=== PATIENT | female | born 1940 | race Caucasian/White ===

== ENCOUNTER 2017-09-10 21:51 | Inpatient (IN) | payer MEDICARE, MEDICAID ==
[2017-09-10] MEDS ORDERED: Sodium Bicarbonate 8.4% 50mEq PFS IVP STA (22:18)
[2017-09-10] MEDS ORDERED: Sodium Bicarbonate 8.4% 50mEq PFS IVP ONE (22:22)
[2017-09-10 22:24] LABS: pH 7.28 (7.35-7.45)
[2017-09-10 22:25] LABS: ALLEN TEST Positive
[2017-09-10 22:27] LABS: % BASOPHILS 0.7 % (0.0-2.0); % EOSINOPHILS 1.7 % (0.0-5.0); % MONOCYTES 12.2 % (2.0-10.0); % NEUTROPHILS 66.4 % (40.0-80.0); BASOPHILE ABSOLUTE 0.1 Th/cumm (0-0.2); EOSINOPHILE ABSOLUTE 0.2 Th/cmm (0.1-0.4); HEMOGLOBIN 12.1 gm/dL (12-16); LYMPHOCYTE ABSOLUTE 2.7 Th/cmm (1.5-3.0); MEAN CELL VOLUME 88.4 fl (81-100); MEAN CORPUSCULAR HGB CONC 32.8 pg (28.0-36.0); MEAN PLATELET VOLUME 7.2 fl; MONOCYTE ABSOLUTE 1.8 Th/cmm (0.3-1.0); NEUTROPHILE ABSOLUTE 9.6 Th/cmm (1.8-8.0); PLATELET COUNT 372 Th/cmm (150-400); RED BLOOD COUNT 4.19 Mil/cmm (3.80-5.20); RED CELL DISTRIBUTION WIDTH 16.3 % (11.5-20.0); WHITE BLOOD COUNT 14.4 Th/cmm (4.8-10.8)
--- NOTE | 2017-09-10 22:39 | ED Physician Chart ---
ED Chief Complaint/HPI - Patient Information Date Seen:: 09/10/17 Time Seen:: 22:00 Chief Complaint:: aloc History of Present Illness:: this is a 77 yo female bib ems from a half-way after she was found sob, confused more than usual. she was in respiratory distress and lethargic. she has a history of uti, encephalopathy diabetes and hypertension. Allergies:: Allergies Allergy/AdvReac Type Severity Reaction Status Date / Time adhesive tape Allergy Verified 09/10/17 21:58 Vitals:: Vital Signs - 8 hr 09/10/17 09/10/17 21:51 22:03 Temp 99.2 F HR 104 RR 39 BP 102/55 119/73 O2 Sat % 100 Historian:: EMS, Medical Records Review:: Nurse's Note Reviewed, Old Chart Reviewed, EMS run form Reviewed, Transfer documents Reviewed ED Review of Systems - Review of Systems General/Constitutional: No fever, No chills, No weight loss, No weakness, No diaphoresis, No edema, No loss of appetite, Other (this patient is unable to give a review of systems) Skin: No skin lesions, No rash, No bruising Head: No headache, No light-headedness Eyes: No loss of vision, No pain, No diplopia ENT: No earache, No nasal drainage, No sore throat, No tinnitus Neck: No neck pain, No swelling, No thyromegaly, No stiffness, No mass noted Cardio Vascular: No chest pain, No palpitations, No PND, No orthopnea, No edema Pulmonary: No SOB, No cough, No sputum, No wheezing GI: No nausea, No vomiting, No diarrhea, No pain, No melena, No hematochezia, No constipation, No hematemesis G/U: No dysuria, No frequency, No hematuria Musculoskeletal: No bone or joint pain, No back pain, No muscle pain Endocrine: No polyuria, No polydipsia Psychiatric: No prior psych history, No depression, No anxiety, No suicidal ideation Hematopoietic: No bruising, No lymphadenopathy Allergic/Immuno: No urticaria, No angioedema Neurological: No syncope, No focal symptoms, No weakness, No paresthesia, No headache, No seizure, No dizziness, No confusion, No vertigo ED Past Medical History - Past Medical History Obtainable: Yes Past Medical History: HTN, DM, CAD, CHF, CVA/TIA, Dyslipidemia, Dementia Family History: None Social History: Non Smoker, No Alcohol, No Drug Use, Care Facility Surgical History: HIP, other (abdominal surgery and left breast surgery. left knee surgery, right hip surgery.) Psychiatricy History: Dementia Medication: Reviewed Family Medical History - Family Member Mother History Unknown: Yes ED Physical Exam - Physical Examination General/Constitutional: Awake, Well-developed, well-nourished, Alert, No distress, GCS 15, Non-toxic appearing, Ambulatory Other Gen/Cons comments:: lethargic with no verbal response Head: Atraumatic Eyes: Lids, conjuctiva normal, PERRL, EOMI Skin: Nl inspection, No rash, No skin lesions, No ecchymosis, Well hydrated, No lymphadenopathy ENMT: External ears, nose nl, Nasal exam nl, Lips, teeth, gums nl Neck: Nontender, Full ROM w/o pain, No JVD, No nuchal rigidity, No bruit, No mass, No stridor Respiratory: Nl effort/Exclusion (labora), Clear to Auscultation, No Wheeze/ Rhonchi/Rales (bilateral rales heard ) Cardio Vascular: RRR, No murmur, gallop, rubs, NL S1 S2 Other Cardio Vascular comments:: tachycardiac GI: No tenderness/rebounding/guarding (the abdomen is distended and tender), No organomegaly, No hernia, Normal BS's, Nondistended, No mass/bruits, No McBurney tenderness : No CVA tenderness Extremities: No tenderness or effusion, Full ROM, normal strength in all extremities, No edema (bilateral 2+ edema with induration noted.), Normal digits & nails Neuro/Psych: Alert/oriented, DTR's symmetric, Normal sensory exam, Normal motor strength, Judgement/insight normal, Mood normal, Normal gait, No focal deficits Misc: Normal back, No paraspinal tenderness ED Labs/Radiology/EKG Results - Lab Results Results: Laboratory Tests 09/10/17 21:52 Specimen Source Arterial Sample Site Right Radial pH 7.28 L pCO2 50.0 H pO2 415.0 H HCO3 22.2 Base Excess -3.6 L O2 Saturation 100.0 Cl Test Positive Vent Rate NA Inspired O2 100 Tidal Volume NA PEEP NA Pressure (ins/psv/peep) NA Critical Value SC - Radiology Results Results: chest s-ray = plumonary edema ct scan of the abdomen = bilateral rib fractures, degenerate lumbar spine. - EKG Interpretations EKG Time:: 22:15 Rate & Rhythm: 97, sinus [place]: left axis ED Assessment - Assessment General Assessment: plumonary edema urinary tract infectionn encephalopathy ED Septic Shock - . Is Septic Shock (SBP<90, OR Lactate>4 mmol\L) present?: No - <6hrs of presentation: Vital Signs: Vital Signs - 8 hr 09/10/17 09/10/17 21:51 22:03 Temp 99.2 F HR 104 RR 39 BP 102/55 119/73 O2 Sat % 100 ED Reassessment (Disposition) - Reassessment Reassessment Condition:: Improved - Diagnosis Diagnosis:: plumonary edema bilateral rib fractures urinary tract infection encephalopathy - Patient Disposition Admitted to:: Telemetry Admitting Medical Physician:: Pedro Quiroz Condition at Disposition:: Improved
[2017-09-10 22:43] LABS: INR 1.19 (0.5-1.4); PROTHROMBIN TIME (TEST) 12.3 SECONDS (9.5-11.5)
[2017-09-10 22:52] LABS: ALB/GLOB RATIO 0.7 (1.0-1.8); ALBUMIN 2.4 gm/dL (3.7-5.3); ALKALINE PHOSPHATASE 75 U/L (34-104); ANION GAP 10.2 (7.0-16.0); BILIRUBIN,TOTAL 0.4 mg/dL (0.3-1.0); BUN - UREA NITROGEN 33 mg/dL (7-25); CALCIUM SERUM 8.1 mg/dL (8.6-10.3); CARBON DIOXIDE 21.2 mEq/L (21.0-31.0); CHLORIDE 116 mEq/L (98-107); CREATININE - SERUM 2.2 mg/dL (0.6-1.2); GLUCOSE 171 mg/dL (70-105); POTASSIUM SERUM 4.4 mEq/L (3.5-5.1); SGOT 22 U/L (13-39); SGPT/ALT 10 U/L (7-52); SODIUM SERUM 143 mEq/L (136-145)
[2017-09-10] MEDS ORDERED: Albuterol/Ipratropium Neb 3 ML AERS HHN ONE ×2 (23:00→23:04)
[2017-09-10 23:22] LABS: URINE SOURCE FOLEY PORT
[2017-09-10 23:24] LABS: URINE BILIRUBIN SMALL (NEGATIVE); URINE BLOOD LARGE (NEGATIVE); URINE GLUCOSE (UA) NEGATIVE (NEGATIVE); URINE KETONE TRACE mg/dL (NEGATIVE); URINE LEUKOCYTE ESTERASE SMALL (NEGATIVE); URINE MICROSCOPIC INDICATED? YES; URINE NITRATE NEGATIVE (NEGATIVE); URINE PH 5.5 (4.6 - 8.0); URINE PROTEIN 100 mg/dL (NEGATIVE); URINE UROBILINOGEN 0.2 E.U./dL (0.2 - 1.0)
[2017-09-10 23:27] LABS: URINE COLOR ORANGE
[2017-09-10 23:29] LABS: URINE CLARITY CLOUDY (CLEAR)
[2017-09-10 23:33] LABS: URINE BACTERIA MODERATE /hpf (NONE SEEN); URINE EPITHELIAL CELLS MODERATE /lpf (FEW); URINE YEAST MODERATE /hpf (NONE SEEN)
[2017-09-10] MEDS ORDERED: Morphine Sulfate 2 mg/mL 1mL Syr IV STA (23:52)
[2017-09-10] MEDS ORDERED: Morphine Sulfate 2 mg/mL 1mL Syr ONE (23:54)
[2017-09-11] MEDS ORDERED: Sodium Chloride 0.9% 1,000 ML IV ONE
[2017-09-11] MEDS ORDERED: Piperacillin Sodium/Tazobact 2.25 gm Vial IV ONE (06:20)
[2017-09-11] MEDS ORDERED: methylPREDNISolone SS 40 mg Vial ONE (06:28)
[2017-09-11] MEDS: methylPREDNISolone SS 40 mg Vial IVP SCH ×4 (06:30→23:58)
[2017-09-11] MEDS: INSULIN ASPART SLIDING SCALE 100 UNITS/ML UNIT SUBQ SCH ×4 (06:38→21:01)
[2017-09-11] MEDS ORDERED: INSULIN HUMAN REGULAR 100 UNITS/ML UNIT ONE (06:38)
[2017-09-11 07:06] VITALS: BP 107/53
[2017-09-11] MEDS: Albuterol/Ipratropium Neb 3 ML AERS HHN SCH ×3 (07:36→19:04)
[2017-09-11] MEDS ORDERED: VTE Chemical Prophylaxis Screen/Admission MC PRN (07:45)
[2017-09-11 08:29] LABS: % BASOPHILS 0.7 % (0.0-2.0); % EOSINOPHILS 0.2 % (0.0-5.0); % LYMPHOCYTES 12.1 % (20.0-50.0); % MONOCYTES 2.1 % (2.0-10.0); % NEUTROPHILS 84.9 % (40.0-80.0); BASOPHILE ABSOLUTE 0.1 Th/cumm (0-0.2); HEMATOCRIT 35.9 % (41.0-60); HEMOGLOBIN 11.7 gm/dL (12-16); LYMPHOCYTE ABSOLUTE 1.2 Th/cmm (1.5-3.0); MEAN CELL VOLUME 88.2 fl (81-100); MEAN CORPUSCULAR HEMOGLOBIN 28.8 pg (27.0-31.0); MEAN CORPUSCULAR HGB CONC 32.6 pg (28.0-36.0); MEAN PLATELET VOLUME 7.1 fl; MONOCYTE ABSOLUTE 0.2 Th/cmm (0.3-1.0); NEUTROPHILE ABSOLUTE 8.8 Th/cmm (1.8-8.0); PLATELET COUNT 367 Th/cmm (150-400); RED BLOOD COUNT 4.07 Mil/cmm (3.80-5.20); RED CELL DISTRIBUTION WIDTH 15.9 % (11.5-20.0)
[2017-09-11 08:43] LABS: WHITE BLOOD COUNT 10.3 Th/cmm (4.8-10.8)
[2017-09-11 08:44] LABS: ALB/GLOB RATIO 0.7 (1.0-1.8); ALBUMIN 2.4 gm/dL (3.7-5.3); ALKALINE PHOSPHATASE 75 U/L (34-104); ANION GAP 13.3 (7.0-16.0); BILIRUBIN,TOTAL 0.4 mg/dL (0.3-1.0); BUN - UREA NITROGEN 36 mg/dL (7-25); CALCIUM SERUM 7.9 mg/dL (8.6-10.3); CARBON DIOXIDE 21.3 mEq/L (21.0-31.0); CHLORIDE 115 mEq/L (98-107); CREATININE - SERUM 2.2 mg/dL (0.6-1.2); GLUCOSE 230 mg/dL (70-105); POTASSIUM SERUM 4.6 mEq/L (3.5-5.1); SGOT 18 U/L (13-39); SGPT/ALT 10 U/L (7-52); SODIUM SERUM 145 mEq/L (136-145); TOTAL PROTEIN,SERUM 6.1 gm/dL (6.0-8.3)
[2017-09-11] MEDS: Potassium Chloride 20 mEq ER Tab PO SCH (09:04)
--- NOTE | 2017-09-11 09:07 | Diagnostic Imaging Report ---
CHEST X-RAY: AP view INDICATION: CHF COMPARISON: None FINDINGS: Increased interstitial lung markings are noted. Multiple old left rib fractures are noted. No focal consolidation or effusions. 8 mm calcific density seen projecting along the left lung base. Heart size at the upper limits of normal. Atherosclerosis is noted. Degenerative changes of the spine and shoulders are noted. IMPRESSION: Increased interstitial lung markings which may be chronic, however, a marginal of congestion cannot be completely excluded. Clinical correlation is recommended. 8 mm calcific density projecting along the left lower lung zone possibly a granuloma. PA and lateral views or CT would further clarify. Multiple old left rib fractures. No pneumothorax. Atherosclerotic vascular disease.
--- NOTE | 2017-09-11 09:14 | Diagnostic Imaging Report ---
Head CT without intravenous contrast Indication: Altered mental status Comparison: None Technique: Axial images were obtained from the vertex to the skull base without IV contrast. Coronal reconstructions were made. Total DLP: 599, CTDI32 FINDINGS: Images of the brain obtained without contrast demonstrate no evidence of an acute hemorrhage. Exam is limited due to technical factors. The ventricles and basal cisterns are patent. No mass effect or midline shift. Mild white matter disease is noted. Atherosclerosis is noted. No evidence of a skull fracture or focal soft tissue swelling. The visualized paranasal sinuses are clear. There appears to be dental hardware. IMPRESSION: No evidence of an acute intracranial hemorrhage. Mild supratentorial white matter disease which is nonspecific and may be due to chronic microvessel ischemia.
--- NOTE | 2017-09-11 09:42 | Diagnostic Imaging Report ---
CT abdomen and pelvis without intravenous contrast Indication: Abdominal pain Comparison: None, Technique: Axial images were obtained from the lung bases to the bilateral proximal femurs without IV contrast. Coronal reconstructions were made. total DLP: 860, CTDI18.5 FINDINGS: Hypoventilatory atelectatic changes of the lungs are seen. Exam is limited due to body habitus and motion. Assessment of solid organs is also limited due to lack of IV contrast. Fatty infiltration of the liver is noted with mildly prominent liver also noted.. No discrete focal lesions. No radiopaque gallstones. No focal splenic lesions. Limited assessment of pancreas since is no obvious focal lesions. No focal adrenal lesions. No evidence of hydronephrosis or focal renal lesions. Mild nonspecific bilateral perinephric inflammatory changes are noted. Small fat-containing umbilical hernia is noted. Calcifications of the uterus is noted. The urinary bladder collapsed containing a Wright catheter and small pocket of gas. Diverticulosis is noted without evidence of diverticulitis. Moderate stool is noted with gas-filled loops of bowel. The appendix is not visualized. Postsurgical changes of anterior abdominal wall are noted with evidence of previous anterior abdominal wall hernia repair. There is minimal presacral free fluid and questionable mild prominence of the rectal wall. Moderate atherosclerosis is noted. Changes of the spine are noted. Right hip arthroplasty is noted. Old bilateral rib fractures are noted. Small hiatal hernia is noted. IMPRESSION: Mild rectal wall prominent which may be due to inflammatory or less likely infiltrative process. Trace fluid along the presacral region and inflammatory changes are also noted. Diverticulosis without evidence of diverticulitis. Mild hepatomegaly with diffuse fatty infiltration. Uterine calcifications likely due to fibroid changes. Postsurgical changes of anterior abdominal wall. Small fat-containing umbilical hernia is noted. Wright catheter with small air pocket within the urinary bladder. Mild urinary bladder wall thickening cannot be excluded. Small hiatal hernia. Atherosclerotic vascular disease, right hip arthroplasty. Degenerative changes of the spine.
[2017-09-11] MEDS: D5-0.45NS 1,000 ML IV SCH (10:45)
[2017-09-11] MEDS ORDERED: Albumin 5% 12.5gm/250mL 12.5 GM/250 ML BTL IV ONE (12:03)
--- NOTE | 2017-09-11 13:54 | Consultation ---
Consult Note - Consult Note Service Date: 09/11/17 Referring Physician: Pedro Quiroz Consult Note: PHYSICIAN Consultation Note: Date of Admission: 09/11/17 Purpose of Consultation: Sepsis UTI Chief Complaint: Patient SYLVIE HU was admitted to location Intensive Care Unit with BILATERAL RIB FRACTURE,UTI,ENCEPHALOPATHY. History of Present Illness: 77-year-old female with the past medical history of hypertension, diabetes mellitus type 2, coronary artery disease, CHF, CVA, dyslipidemia, dementia brought from long-term for shortness of breath associated with associated increased confusion over the last 2 weeks. The patient was in no respiratory distress and became lethargic she was brought to the ER for further evaluation and management. On initial evaluation patient's temperature was 99.2F and WBC count was 14,400. Urinalysis showed pyuria, candiduria and bacteriuria. Patient was admitted to the ICU and the Zosyn was started. ID consult was called for further antibiotic management. Past Medical History: hypertension, diabetes mellitus type 2, coronary artery disease, CHF, CVA, dyslipidemia, dementia Allergies Allergy/AdvReac Type Severity Reaction Status Date / Time adhesive tape Allergy Verified 09/10/17 21:58 Vital Signs Temp 97.7 F 09/11/17 08:00 Pulse 87 09/11/17 13:02 Resp 20 09/11/17 13:02 BP 122/55 09/11/17 11:00 Pulse Ox 99 09/11/17 13:02 Intake & Output 09/10/17 09/11/17 09/11/17 18:59 06:59 18:59 Intake Total 50 Output Total 100 Balance -50 Weight (lbs) 90.718 kg 90.718 kg Intake: Intake, IV Amount 50 Piperacillin Sodium/ 50 Tazobact 2.25 gm In Sodium Chloride 0.9% 50 ml @ 100 mls/hr IV Q8HR [facility] Rx#:[id number] Oral 0 Output: Urine 100 Stool 0 Other: Weight Source Bedscale Laboratory Results - last 24 hr 09/10/17 09/10/17 09/10/17 21:52 22:13 22:13 WBC 14.4 H RBC 4.19 Hgb 12.1 Hct 37.0 L MCV 88.4 MCH 29.0 MCHC Differential 32.8 RDW 16.3 Plt Count 372 MPV 7.2 Neutrophils % 66.4 Lymphocytes % 19.0 L Monocytes % 12.2 H Eosinophils % 1.7 Basophils % 0.7 PT 12.3 H INR 1.19 PTT (Actin FS) 24.4 L Specimen Source Arterial Sample Site Right Radial pH 7.28 L pCO2 50.0 H pO2 415.0 H HCO3 22.2 Base Excess -3.6 L O2 Saturation 100.0 Cl Test Positive Vent Rate NA Inspired O2 100 Tidal Volume NA PEEP NA Pressure (ins/psv/peep) NA Critical Value SC Sodium Potassium Chloride Carbon Dioxide Anion Gap BUN Creatinine Est GFR ( Amer) Est GFR (Non-Af Amer) BUN/Creatinine Ratio Glucose POC Glucose Whole Bld Lactic Acid Calcium Total Bilirubin AST ALT Alkaline Phosphatase Creatine Kinase Troponin I B-Natriuretic Peptide Total Protein Albumin Globulin Albumin/Globulin Ratio Urine Source Urine Color Urine Clarity Urine pH Ur Specific [place] Urine Protein Urine Glucose (UA) Urine Ketones Urine Blood Urine Nitrate Urine Bilirubin Urine Urobilinogen Ur Leukocyte Esterase Urine RBC Urine WBC Ur Epithelial Cells Urine Bacteria Urine Yeast 09/10/17 09/10/17 09/10/17 22:13 22:13 22:13 WBC RBC Hgb Hct MCV MCH MCHC Differential RDW Plt Count MPV Neutrophils % Lymphocytes % Monocytes % Eosinophils % Basophils % PT INR PTT (Actin FS) Specimen Source Sample Site pH pCO2 pO2 HCO3 Base Excess O2 Saturation Cl Test Vent Rate Inspired O2 Tidal Volume PEEP Pressure (ins/psv/peep) Critical Value Sodium 143 Potassium 4.4 Chloride 116 H Carbon Dioxide 21.2 Anion Gap 10.2 BUN 33 H Creatinine 2.2 H Est GFR ( Amer) TNP Est GFR (Non-Af Amer) TNP BUN/Creatinine Ratio 15.0 Glucose 171 H POC Glucose Whole Bld Lactic Acid 1.08 Calcium 8.1 L Total Bilirubin 0.4 AST 22 ALT 10 Alkaline Phosphatase 75 Creatine Kinase Troponin I 0.02 B-Natriuretic Peptide Total Protein 6.0 Albumin 2.4 L Globulin 3.6 Albumin/Globulin Ratio 0.7 L Urine Source Urine Color Urine Clarity Urine pH Ur Specific [place] Urine Protein Urine Glucose (UA) Urine Ketones Urine Blood Urine Nitrate Urine Bilirubin Urine Urobilinogen Ur Leukocyte Esterase Urine RBC Urine WBC Ur Epithelial Cells Urine Bacteria Urine Yeast 09/10/17 09/11/17 09/11/17 23:15 00:00 03:45 WBC RBC Hgb Hct MCV MCH MCHC Differential RDW Plt Count MPV Neutrophils % Lymphocytes % Monocytes % Eosinophils % Basophils % PT INR PTT (Actin FS) Specimen Source Sample Site pH pCO2 pO2 HCO3 Base Excess O2 Saturation Cl Test Vent Rate Inspired O2 Tidal Volume PEEP Pressure (ins/psv/peep) Critical Value Sodium Potassium Chloride Carbon Dioxide Anion Gap BUN Creatinine Est GFR ( Amer) Est GFR (Non-Af Amer) BUN/Creatinine Ratio Glucose POC Glucose Whole Bld Lactic Acid Calcium Total Bilirubin AST ALT Alkaline Phosphatase Creatine Kinase 131 Troponin I B-Natriuretic Peptide 61.5 Total Protein Albumin Globulin Albumin/Globulin Ratio Urine Source [place] Urine Color ORANGE Urine Clarity CLOUDY H Urine pH 5.5 Ur Specific [place] >= 1.030 Urine Protein 100 H Urine Glucose (UA) NEGATIVE Urine Ketones TRACE Urine Blood LARGE H Urine Nitrate NEGATIVE Urine Bilirubin SMALL H Urine Urobilinogen 0.2 Ur Leukocyte Esterase SMALL H Urine RBC 5-10 H Urine WBC 10-25 H Ur Epithelial Cells MODERATE Urine Bacteria MODERATE H Urine Yeast MODERATE H 09/11/17 09/11/17 09/11/17 03:45 04:27 06:34 WBC RBC Hgb Hct MCV MCH MCHC Differential RDW Plt Count MPV Neutrophils % Lymphocytes % Monocytes % Eosinophils % Basophils % PT INR PTT (Actin FS) Specimen Source Sample Site pH pCO2 pO2 HCO3 Base Excess O2 Saturation Cl Test Vent Rate Inspired O2 Tidal Volume PEEP Pressure (ins/psv/peep) Critical Value Sodium Potassium Chloride Carbon Dioxide Anion Gap BUN Creatinine Est GFR ( Amer) Est GFR (Non-Af Amer) BUN/Creatinine Ratio Glucose POC Glucose 228 H 265 H Whole Bld Lactic Acid Calcium Total Bilirubin AST ALT Alkaline Phosphatase Creatine Kinase Troponin I 0.02 B-Natriuretic Peptide Total Protein Albumin Globulin Albumin/Globulin Ratio Urine Source Urine Color Urine Clarity Urine pH Ur Specific [place] Urine Protein Urine Glucose (UA) Urine Ketones Urine Blood Urine Nitrate Urine Bilirubin Urine Urobilinogen Ur Leukocyte Esterase Urine RBC Urine WBC Ur Epithelial Cells Urine Bacteria Urine Yeast 09/11/17 09/11/17 09/11/17 08:10 08:10 11:25 WBC 10.3 D RBC 4.07 Hgb 11.7 L Hct 35.9 L MCV 88.2 MCH 28.8 MCHC Differential 32.6 RDW 15.9 Plt Count 367 MPV 7.1 Neutrophils % 84.9 H Lymphocytes % 12.1 L Monocytes % 2.1 Eosinophils % 0.2 Basophils % 0.7 PT INR PTT (Actin FS) Specimen Source Sample Site pH pCO2 pO2 HCO3 Base Excess O2 Saturation Cl Test Vent Rate Inspired O2 Tidal Volume PEEP Pressure (ins/psv/peep) Critical Value Sodium 145 Potassium 4.6 Chloride 115 H Carbon Dioxide 21.3 Anion Gap 13.3 BUN 36 H Creatinine 2.2 H Est GFR ( Amer) TNP Est GFR (Non-Af Amer) TNP BUN/Creatinine Ratio 16.4 Glucose 230 H POC Glucose 169 H Whole Bld Lactic Acid Calcium 7.9 L Total Bilirubin 0.4 AST 18 ALT 10 Alkaline Phosphatase 75 Creatine Kinase Troponin I B-Natriuretic Peptide Total Protein 6.1 Albumin 2.4 L Globulin 3.7 Albumin/Globulin Ratio 0.7 L Urine Source Urine Color Urine Clarity Urine pH Ur Specific [place] Urine Protein Urine Glucose (UA) Urine Ketones Urine Blood Urine Nitrate Urine Bilirubin Urine Urobilinogen Ur Leukocyte Esterase Urine RBC Urine WBC Ur Epithelial Cells Urine Bacteria Urine Yeast 09/11/17 09/11/17 11:45 11:45 WBC RBC Hgb Hct MCV MCH MCHC Differential RDW Plt Count MPV Neutrophils % Lymphocytes % Monocytes % Eosinophils % Basophils % PT INR PTT (Actin FS) Specimen Source Sample Site pH pCO2 pO2 HCO3 Base Excess O2 Saturation Cl Test Vent Rate Inspired O2 Tidal Volume PEEP Pressure (ins/psv/peep) Critical Value Sodium Potassium Chloride Carbon Dioxide Anion Gap BUN Creatinine Est GFR ( Amer) Est GFR (Non-Af Amer) BUN/Creatinine Ratio Glucose POC Glucose Whole Bld Lactic Acid Calcium Total Bilirubin AST ALT Alkaline Phosphatase Creatine Kinase 131 Troponin I 0.03 B-Natriuretic Peptide Total Protein Albumin Globulin Albumin/Globulin Ratio Urine Source Urine Color Urine Clarity Urine pH Ur Specific [place] Urine Protein Urine Glucose (UA) Urine Ketones Urine Blood Urine Nitrate Urine Bilirubin Urine Urobilinogen Ur Leukocyte Esterase Urine RBC Urine WBC Ur Epithelial Cells Urine Bacteria Urine Yeast Home Medication Medication Instructions Recorded Type Aspirin [Aspirin Chewable] 81 mg PO DAILY 09/10/17 History Carvedilol 6.25 mg PO BID 09/10/17 History Diltiazem HCl [Diltiazem 24Hr ER] 240 mg PO DAILY 09/10/17 History Gabapentin 100 mg PO HS 09/10/17 History Heparin Sodium,Porcine [Heparin 5,000 unit SQ TID 09/10/17 History Sodium] Insulin Aspart Sliding Scale See Protocol SUBQ ACHS 09/10/17 History [NovoLOG INSULIN SLIDING SCALE] Ipratropium/Albuterol Sulfate 3 ml IH Q4H PRN 09/10/17 History [Iprat-Albut 0.5-3(2.5) mg/3 ml] Levothyroxine Sodium 75 mcg PO QDAC 09/10/17 History Metformin HCl 1,000 mg PO BID 09/10/17 History Pantoprazole Sodium 40 mg PO Q24H PRN 09/10/17 History Pravastatin Sodium [Pravastatin*] 40 mg PO HS 09/10/17 History Tramadol HCl [Ultram] 50 mg PO Q6H PRN 09/10/17 History Umeclidinium Brm/Vilanterol Tr 1 each IH DAILY 09/10/17 History [Anoro Ellipta 62.5-25 Mcg INH] Current Medications Generic Name Dose Route Start Last Admin Trade Name Freq PRN Reason Stop Dose Admin Acetaminophen 650 mg 09/11/17 12:01 09/11/17 13:21 Tylenol PO 11/10/17 12:00 650 mg Q4HR PRN Administration pain/fever Albuterol/Ipratropium 3 ml 09/11/17 07:00 09/11/17 13:01 Duoneb Neb HHN 11/10/17 06:59 3 ml Q6HRT ZAK Administration Furosemide 40 mg 09/11/17 09:00 09/11/17 08:52 Lasix IVP 11/10/17 08:59 40 mg DAILY ZAK Administration Heparin Sodium (Porcine) 5,000 units 09/11/17 09:00 09/11/17 09:03 Heparin SUBQ 11/10/17 08:59 5,000 units Q12HR ZAK Administration Piperacillin Sod/Tazobactam 50 mls @ 100 mls/hr 09/11/17 05:00 09/11/17 12:35 Sod 2.25 gm/ Sodium Chloride IV 11/10/17 04:59 100 mls/hr Q8HR ZAK Administration Dextrose/Sodium Chloride 1,000 mls @ 50 mls/hr 09/11/17 10:18 09/11/17 10:45 D5-0.45ns IV 11/10/17 10:17 50 mls/hr .Q20H ZAK Administration Albumin Human 12.5 gm in 250 mls @ 62.5 mls/hr 09/11/17 12:03 09/11/17 12:59 Albutein 5% IV 09/11/17 16:02 62.5 mls/hr X1 ONE Administration Insulin Aspart 0 units 09/11/17 07:30 09/11/17 11:37 Novolog Insulin Sliding Scale SUBQ 11/10/17 07:29 2 units ACHS ZAK Administration Protocol Insulin Aspart 0 units 09/11/17 16:30 Novolog Insulin Sliding Scale SUBQ 11/10/17 16:29 ACHS [facility] Protocol Levothyroxine Sodium 0.075 mg 09/12/17 07:30 Synthroid PO 11/11/17 07:29 QDAC ZAK Methylprednisolone Sodium Succinate 40 mg 09/11/17 06:00 09/11/17 12:35 Solu-Medrol IVP 11/10/17 05:59 40 mg Q6HR ZAK Administration Miscellaneous 1 ea 09/11/17 07:45 Vte Chemical Prophylaxis Screen/ Admission [facility] 11/10/17 07:44 PRN PRN PROTOCOL Miscellaneous 5,000 unit 09/11/17 14:00 Heparin Sodium,Porcine [Heparin Sodium] SQ 11/10/17 13:59 TID ZAK Potassium Chloride 40 meq 09/11/17 09:00 09/11/17 09:04 Klor-Con PO 11/10/17 08:59 40 meq DAILY ZAK Administration Review of Systems: A 12 point ROS was reviewed with the pertinent positive and negatives noted in the HPI. General/Constitutional: No fever, No chills, No weight loss, No weakness, No diaphoresis, No edema, No loss of appetite, Other (this patient is unable to give a review of systems) Skin: No skin lesions, No rash, No bruising Head: No headache, No light-headedness Eyes: No loss of vision, No pain, No diplopia ENT: No earache, No nasal drainage, No sore throat, No tinnitus Neck: No neck pain, No swelling, No thyromegaly, No stiffness, No mass noted Cardio Vascular: No chest pain, No palpitations, No PND, No orthopnea, No edema Pulmonary: No SOB, No cough, No sputum, No wheezing GI: No nausea, No vomiting, No diarrhea, No pain, No melena, No hematochezia, No constipation, No hematemesis G/U: No dysuria, No frequency, No hematuria Musculoskeletal: No bone or joint pain, No back pain, No muscle pain Endocrine: No polyuria, No polydipsia Psychiatric: No prior psych history, No depression, No anxiety, No suicidal ideation Hematopoietic: No bruising, No lymphadenopathy Allergic/Immuno: No urticaria, No angioedema Neurological: No syncope, No focal symptom s, No weakness, No paresthesia, No headache, No seizure, No dizziness, No confusion, No vertigo. Social History Lives at nursing facility. No active smoking at this time no alcohol or drug use. Family Medical History Family Medical History unknown. Physical Exam: General: Comfortable obese. HEENT: Head: Normocytic, atraumatic. Oral cavity: Moist, pink tongue eyes: Pallor is present icterus. Pupil PERRLA. EOMI. Neck: Supple, no JVD or bruit. Cardio: S1 and S2 within normal with regular rhythm Respiratory: Vesicular breath sound throughout, no crackles no wheezing. Abdominal: Abdomen soft within normal limits soft, nontender nondistended bowel sounds present Genital/Urinary: Deferred. Alert awake oriented 3. No focal neuro deficit. Extremities: Neurological: Arousable, awake. Speech is clear no cyanosis, no clubbing, no edema. Breast: There is an I and d wound under the left breast with intact wound secured by 8 adrian. no erythema or discharge. Assessment: 1. Leukocytosis, sepsis. 2. UTI and candiduria. Bacteriuria. 3. Hypertension. 4. Coronary artery Disease. 5. Diabetes mellitus type 2. 6. History of CVA. Plan: Continue Zosyn. Add Diflucan. Thank you Dr. godoy for involving taking care of this patient Signed, Wood Ibrahim M.D. [id number]
[2017-09-11] MEDS ORDERED: Non-Formulary Item 1 EA (Heparin Sodium,Porcine [Heparin Sodium] 5,000 UNIT) SQ SCH (14:00)
--- NOTE | 2017-09-11 14:35 | History & Physical ---
ADMIT DATE: 09/11/2017 REASON FOR ADMISSION: Shortness of breath, altered level of consciousness, urinary tract infection and is exogenous obesity patient with BMI of 34.3, diabetes mellitus, hypertension, hyperlipidemia. HISTORY OF PRESENT ILLNESS: This is a 77-year-old female resident of nursing home facility. Paramedics brought to the Emergency Room due to shortness of breath and altered level of consciousness. Since admission, the patient is able to say few words like want to go to the bathroom or answer yes or no, but then fall back to the sleep again. The patient's workup in the Emergency Room include CT of the head, which revealed no acute changes. The patient also had a CT of abdomen and pelvis and chest x-rays working diagnosis with congestive heart failure arrived though BNP was normal at 61. Lactic acid negative in venous ABG. WBC elevated at 14,000 with neutrophil of 66% normal. BUN 33, creatinine 2.2. Troponin negative. CPK negative. Urinalysis revealed trace of ketones, large blood, nitrite negative, wbc's 10-25 and bacteria and epithelial cells moderate, yeast moderate. All history required. REVIEW OF SYSTEMS: As the patient is unable to provide me any history. ALLERGIES: To ADHESIVE TAPE. MEDICATION: At the retirement is reviewed. REVIEW OF SYSTEMS: Unable to do as the patient is not able enough to give me the history from the poor participation. Review of chart from the [facility] done. PHYSICAL EXAMINATION: VITAL SIGNS: Height 1.63 meter, weight 90.7 kg, BMI 34.3, temperature maximum 97.7, pulse 80, respiratory rate 24, blood pressure 122/55, oxygen saturation 97% on 2 liter nasal cannula oxygen. HEENT: Significant for oral mucosa dry. NECK: Short and thick. No icterus or pallor. Oral candidiasis. LUNGS: Decreased air entry all over, but no rales, rhonchi. CARDIOVASCULAR: S1, S2 normal limit. ABDOMEN: Obese, otherwise benign. Wright catheter has very little yellow color urine, no blood noted in the Wright bag. EXTREMITIES: No leg edema noted, but very dry. SKIN: Dorsalis pedis poorly palpable. Chest x-ray is significant for atherosclerotic heart disease, multiple old left-sided rib fracture, no pneumothorax noted, and 8 mm granuloma noted, interstitial lung marking are elevated to appear chronic. CT abdomen and pelvis revealed hiatal hernia, hepatomegaly with fatty liver, diverticulosis without diverticulitis, and umbilical fatty hernia, Wright catheter in place, atherosclerotic vascular disease noted, degenerative disease noted in a supine and mild rectal wall prominence noted. Calcified fibrosis also noted and postsurgical changes in the anterior abdominal wall, also noted. CT head revealed chronic changes, but no acute changes noted. WBC on admission 14,000, repeat one is 10,000, hemoglobin 11.7, MCV 88 and a platelet count of 367,000, neutrophil 84%. Protime 12.3, PTT 24.4. Arterial ABG: pH 7.28, pCO2 50, pO2 415, bicarbonate 22, oxygen saturation 100% on 100% FiO2. Sodium 145, potassium 4.6, chloride 115, bicarbonate 21, BUN 36, creatinine 2.2, glucose 230, calcium 7.9. Liver panel unremarkable. CPK 131. Troponin negative. BNP 61. Albumin 2.4. Urinalysis: pH 5.5, specific gravity 1.030. Urine cloudy, large blood, ketones trace, leukocyte esterase small, WBC 10-25, epithelial cell moderate. ASSESSMENT AND PLAN: 1. Acute shortness of breath, most likely secondary to congestive heart failure, right-sided heart failure, likely. 2. Clinically, appeared obstructive sleep apnea. 3. Hypertension with atherosclerotic heart disease. 4. 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 5. Hyperlipidemia. 6. Exogenous obesity. 7. Urinary tract infection. It may be contaminant as many bacteria, yeast, and epithelial cells noted in the urine sample. Empiric antibiotics started in the Emergency Room. ID consult and Cardiology consult will be obtained and monitor BMP, troponin, and electrolytes. We will give the patient 5% albumin 250 mL bolus and hold patient's medication until the patient became more alert. Dr. Quiroz will follow the patient from 09/12/2017. JOB# [id number]
[2017-09-11] MEDS: Fluconazole 100mg/50mL 100 MG/50 ML BOTTLE IV SCH (14:58)
[2017-09-11] MEDS ORDERED: INSULIN ASPART SLIDING SCALE 100 UNITS/ML UNIT SUBQ SCH (16:30)
--- NOTE | 2017-09-11 22:42 | Consultation ---
DATE OF CONSULTATION: 09/11/[address] Ag. HISTORY AND PHYSICAL: This 77-year-old female patient, has been complaining of shortness of breath for a period of 2 weeks. Following this, the patient came to the Emergency Room and the patient is admitted with congestive heart failure, right ventricular failure. PAST MEDICAL HISTORY: Congestive heart failure, chronic, diabetes mellitus type 2, diabetic, insulin-dependent diabetic chronic kidney disease, stage 3, hiatal hernia, fatty liver, diverticulosis, obstructive sleep apnea, hyperlipidemia, urinary tract infection, obesity, CVA with late effect, angina. FAMILY HISTORY: Unremarkable. SOCIAL HISTORY: No history of smoking, alcohol abuse. ALLERGIES: None. PHYSICAL EXAMINATION: VITAL SIGNS: Blood pressure 130/80, pulse 78, respirations 28. HEAD: Normocephalic. No lumps or bumps. EYES: Pupils equal, reactive to light. Fundi show AV nicking, sclerae white, conjunctivae pink. NECK: Carotid 2+. Normal upstroke. JVD 10 cm above sternal angle. Thyroid not palpable. Lymph nodes not palpable. CHEST: Shows increased AP diameter. No kyphosis, scoliosis. LUNGS: Bilateral rales. Decreased breath sounds both bases. HEART: PMI sixth intercostal space with lateral to midclavicular line. S1, S2, S3, S4, soft systolic murmur. ABDOMEN: Soft. Liver, spleen not palpable. No organomegaly. Bowel sounds active. NEUROLOGIC: Unremarkable. EXTREMITIES: Peripheral pulses 1+, pedal edema 2+. CLINICAL IMPRESSION: Congestive heart failure, right ventricular failure, hypertension, diabetes mellitus type 2, insulin-dependent diabetes mellitus, diabetic chronic kidney disease, stage 3, hiatal hernia, fatty liver, diverticulosis, obstructive sleep apnea, obesity, hyperlipidemia, urinary tract infection, CVA with late effect, angina. PLAN: The patient to continue present management, IV antibiotics. Monitor closely for congestive heart failure. JOB# [id number]
[2017-09-12] MEDS: Albuterol/Ipratropium Neb 3 ML AERS HHN SCH ×4 (01:45→19:12)
[2017-09-12 04:21] LABS: % BASOPHILS 0.2 % (0.0-2.0); % EOSINOPHILS 0.1 % (0.0-5.0); % LYMPHOCYTES 10.1 % (20.0-50.0); % MONOCYTES 4.4 % (2.0-10.0); % NEUTROPHILS 85.2 % (40.0-80.0); HEMATOCRIT 32.1 % (41.0-60); HEMOGLOBIN 10.7 gm/dL (12-16); LYMPHOCYTE ABSOLUTE 0.8 Th/cmm (1.5-3.0); MEAN CELL VOLUME 87.1 fl (81-100); MEAN CORPUSCULAR HGB CONC 33.2 pg (28.0-36.0); MEAN PLATELET VOLUME 7.2 fl; MONOCYTE ABSOLUTE 0.3 Th/cmm (0.3-1.0); NEUTROPHILE ABSOLUTE 6.8 Th/cmm (1.8-8.0); PLATELET COUNT 380 Th/cmm (150-400); RED BLOOD COUNT 3.69 Mil/cmm (3.80-5.20); RED CELL DISTRIBUTION WIDTH 15.9 % (11.5-20.0)
[2017-09-12 04:26] LABS: WHITE BLOOD COUNT 7.9 Th/cmm (4.8-10.8)
[2017-09-12 04:52] LABS: ALB/GLOB RATIO 0.7 (1.0-1.8); ALBUMIN 2.4 gm/dL (3.7-5.3); ALKALINE PHOSPHATASE 77 U/L (34-104); AMYLASE SERUM 30 U/L (29-103); ANION GAP 12.3 (7.0-16.0); BILIRUBIN,TOTAL 0.4 mg/dL (0.3-1.0); BUN - UREA NITROGEN 43 mg/dL (7-25); CALCIUM SERUM 7.4 mg/dL (8.6-10.3); CHLORIDE 114 mEq/L (98-107); CHOLESTEROL 86 mg/dL (<200); CREATININE - SERUM 2.4 mg/dL (0.6-1.2); GLUCOSE 280 mg/dL (70-105); HDL -HIGH DENSITY LIPOPROTEIN 14 mg/dL (23-92); POTASSIUM SERUM 4.3 mEq/L (3.5-5.1); SGOT 23 U/L (13-39); SGPT/ALT 12 U/L (7-52); SODIUM SERUM 142 mEq/L (136-145); TOTAL PROTEIN,SERUM 5.7 gm/dL (6.0-8.3); TRIGLYCERIDES 170 mg/dL (<150); URIC ACID 9.1 mg/dL (2.3-6.6)
[2017-09-12] MEDS: methylPREDNISolone SS 40 mg Vial IVP SCH ×3 (05:20→17:00)
[2017-09-12] MEDS: D5-0.45NS 1,000 ML IV SCH (05:22)
[2017-09-12] MEDS: INSULIN ASPART SLIDING SCALE 100 UNITS/ML UNIT SUBQ SCH ×4 (06:38→21:08)
[2017-09-12] MEDS: Levothyroxine 0.075 Mg Tab PO SCH (06:41)
--- NOTE | 2017-09-12 08:15 | Diagnostic Imaging Report ---
Portable chest x-ray HISTORY: Shortness of breath Compared with prior exam of September 10, 2017, the heart is enlarged. Accentuation of the lower interstitial lung markings. No focal processes are seen. Multiple old bilateral rib fractures are seen. IMPRESSION: 1. No acute focal pulmonary processes 2. Cardiomegaly
[2017-09-12] MEDS: Potassium Chloride 20 mEq ER Tab PO SCH (09:15)
[2017-09-12] MEDS ORDERED: Probiotic Screen MC PRN (09:20)
[2017-09-12] MEDS: Aspirin 81mg Chewable Tab PO SCH (10:01)
--- NOTE | 2017-09-12 11:11 | Progress Notes ---
DATE: PATIENT'S IDENTIFICATION: A 77-year-old female. The patient seen and examined in ICU, bed 9. The patient is alert, awake provide history. The patient is complaining of chest heaviness, dull. The patient looked very comfortable while talking. The patient has diabetes. The patient resides in a long-term. The patient also has history of hypertension and coronary artery disease and history of as well. The patient currently denies any abdominal pain. Denies any nausea, vomiting, hematemesis, hematuria. The patient has very poor p.o. intake. PHYSICAL EXAMINATION: GENERAL: The patient is alert, awake, lying in the bed. VITAL SIGNS: Temperature 98, pulse is 82, respiratory rate 18, blood pressure 157/78. HEENT: Normocephalic, atraumatic. No facial asymmetry. Absent upper and lower dentition noted. NECK: Supple, no JVD. HEART: Regular. CHEST AND LUNGS: Equal in expansion, no expiratory wheezing. ABDOMEN: Soft. No guarding, no rigidity. Bowel sounds are positive. No palpable mass. EXTREMITIES: Bilateral lower extremity edema noted, more on the right than left. Upper extremity edema noted as well. NEUROLOGY: Alert and awake, follows commands. Moving upper and lower extremities without any difficulty. AVAILABLE DIAGNOSTIC DATA: White count of 7.9, hemoglobin 10.7, platelet count 380, BUN and creatinine 43 and 2.4, chloride 142, sodium 142, potassium level 3, chloride 114, CO2 of 20, glucose scan is reviewed. BNP is 1100. Albumin of 2.4. TSH of 1.05. Chest x-ray, no acute pulmonary disease, elevated BNP, probably secondary to diastolic heart failure. CLINICAL IMPRESSION: 1. Subjective symptoms of shortness of breath. Chest x-ray done, it looked unremarkable. The patient has history of diabetes, hypertension and chronic kidney disease. Etiology of symptoms needs to determine in the view of the bedridden state long with chronic kidney disease with low albumin, probably to have nephrotic syndrome causing hypercoagulable state. 2. Ruled out deep vein thrombosis and pulmonary embolism. 3. Chronic kidney disease stage 3. 4. Hypertension. 5. Diabetes. 6. Urinary tract infection. 7. Degenerative joint disease. 8. Obesity. 9. Most likely obstructive sleep apnea. 10. Elevated BNP of 1100 with troponin being negative. 11. Lower extremity edema and upper extremity edema secondary to anasarca, probably from nephrotic syndrome. PLAN: I would like to get lower extremity arterial Doppler study. If DVT is present, will do the V/Q scan in the view of chronic kidney disease, also continue to provide oxygen, nebulizer treatment along with the antibiotic for now. Transfer this patient to telemetry unit. The patient will have cut down the IV fluid if the patient is receiving. Follow lab and follow consult recommendation. 2D echocardiogram has been requested. We will reevaluate after 2D echocardiogram, follow labs and follow admissions consultant recommendation as well. The patient's overall long-term prognosis is guarded. JOB# [id number]
--- NOTE | 2017-09-12 13:12 | Diagnostic Imaging Report ---
Bilateral lower extremity Doppler venous ultrasound exam HISTORY: Swelling Sonographic sector images were obtained over the legs bilaterally. The exam is extremely limited due to lack of patient tolerance associated with pain and limited visualization of the major vascular structures due to swelling/edema. The exam the right leg is extremely limited as the patient could not tolerate assessment of compression of the veins. No appreciable flow identified through the majority of the deep venous system of the right leg. Questionable low level intraluminal echogenic in the proximal portion of the right superficial femoral vein. The exam of the left leg demonstrates patency of the common femoral, mid and distal portions of the superficial femoral, popliteal, and posterior tibial veins. No thrombus. Normal compressibility. Low-level intraluminal echoes seen within the proximal portion of the superficial femoral vein with normal compressibility. Nonocclusive thrombus cannot be definitely excluded. IMPRESSION: 1. Very limited/incomplete suboptimal exam of the right leg due to the factors noted above. No appreciable flow could be sonographically demonstrated. Thrombus cannot be excluded. 2. Low-level intraluminal echoes within the proximal portion of the left superficial femoral vein with normal compressibility. Findings of questionable significance. Mild nonocclusive thrombus cannot be ruled out. There remains patency of the remainder of the deep venous system of the left leg.
[2017-09-12] MEDS: Fluconazole 100mg/50mL 100 MG/50 ML BOTTLE IV SCH (14:16)
--- NOTE | 2017-09-12 23:57 | Infectious Disease Prog Note ---
Infectious Disease Subjective - Review of Systems Service Date: 09/12/17 Infectious Disease Objective - Results Result Diagrams: 09/12/17 04:10 09/12/17 04:10 Recent Labs: Laboratory Last Values WBC 7.9 Th/cmm (4.8-10.8) D 09/12/17 04:10 RBC 3.69 Mil/cmm (3.80-5.20) L 09/12/17 04:10 Hgb 10.7 gm/dL (12-16) L 09/12/17 04:10 Hct 32.1 % (41.0-60) L 09/12/17 04:10 MCV 87.1 fl (81-100) 09/12/17 04:10 MCH 29.0 pg (27.0-31.0) 09/12/17 04:10 MCHC Differential 33.2 pg (28.0-36.0) 09/12/17 04:10 RDW 15.9 % (11.5-20.0) 09/12/17 04:10 Plt Count 380 Th/cmm (150-400) 09/12/17 04:10 MPV 7.2 fl 09/12/17 04:10 Neutrophils % 85.2 % (40.0-80.0) H 09/12/17 04:10 Lymphocytes % 10.1 % (20.0-50.0) L 09/12/17 04:10 Monocytes % 4.4 % (2.0-10.0) 09/12/17 04:10 Eosinophils % 0.1 % (0.0-5.0) 09/12/17 04:10 Basophils % 0.2 % (0.0-2.0) 09/12/17 04:10 PT 12.3 SECONDS (9.5-11.5) H 09/10/17 22:13 INR 1.19 (0.5-1.4) 09/10/17 22:13 PTT (Actin FS) 24.4 SECONDS (26.0-38.0) L 09/10/17 22:13 D-Dimer 3340 ng/mL (100-400) H 09/12/17 04:10 Specimen Source Arterial 09/10/17 21:52 Sample Site Right Radial 09/10/17 21:52 pH 7.28 (7.35-7.45) L 09/10/17 21:52 pCO2 50.0 mmHg (35.0-45.0) H 09/10/17 21:52 pO2 415.0 mmHg (80.0-100.0) H 09/10/17 21:52 HCO3 22.2 mEq/L (20.0-26.0) 09/10/17 21:52 Base Excess -3.6 mEq/L (-3.0-3.0) L 09/10/17 21:52 O2 Saturation 100.0 % (92.0-100.0) 09/10/17 21:52 Cl Test Positive 09/10/17 21:52 Vent Rate NA 09/10/17 21:52 Inspired O2 100 09/10/17 21:52 Tidal Volume NA 09/10/17 21:52 PEEP NA 09/10/17 21:52 Pressure (ins/psv/peep) NA 09/10/17 21:52 Critical Value SC 09/10/17 21:52 Sodium 142 mEq/L (136-145) 09/12/17 04:10 Potassium 4.3 mEq/L (3.5-5.1) 09/12/17 04:10 Chloride 114 mEq/L (98-107) H 09/12/17 04:10 Carbon Dioxide 20.0 mEq/L (21.0-31.0) L 09/12/17 04:10 Anion Gap 12.3 (7.0-16.0) 09/12/17 04:10 BUN 43 mg/dL (7-25) H 09/12/17 04:10 Creatinine 2.4 mg/dL (0.6-1.2) H 09/12/17 04:10 Est GFR ( Amer) TNP 09/12/17 04:10 Est GFR (Non-Af Amer) IDP 09/12/17 04:10 BUN/Creatinine Ratio 17.9 09/12/17 04:10 Glucose 280 mg/dL (70-105) H 09/12/17 04:10 POC Glucose 223 MG/DL (70 - 105) H 09/12/17 20:14 Whole Bld Lactic Acid 1.08 mmol/L (0.60-1.99) 09/10/17 22:13 Uric Acid 9.1 mg/dL (2.3-6.6) H 09/12/17 04:10 Calcium 7.4 mg/dL (8.6-10.3) L 09/12/17 04:10 Total Bilirubin 0.4 mg/dL (0.3-1.0) 09/12/17 04:10 AST 23 U/L (13-39) 09/12/17 04:10 ALT 12 U/L (7-52) 09/12/17 04:10 Alkaline Phosphatase 77 U/L (34-104) 09/12/17 04:10 Ammonia 51 umol/L (16-53) 09/12/17 04:10 Creatine Kinase 130 U/L (30-223) 09/11/17 11:45 Troponin I 0.03 ng/mL (0.01-0.05) 09/11/17 19:59 B-Natriuretic Peptide 1100.0 pg/mL (5.0-100.0) H 09/12/17 04:10 Total Protein 5.7 gm/dL (6.0-8.3) L 09/12/17 04:10 Albumin 2.4 gm/dL (3.7-5.3) L 09/12/17 04:10 Globulin 3.3 gm/dL 09/12/17 04:10 Albumin/Globulin Ratio 0.7 (1.0-1.8) L 09/12/17 04:10 Triglycerides 170 mg/dL (<150) H 09/12/17 04:10 Cholesterol 86 mg/dL (<200) 09/12/17 04:10 LDL Cholesterol Direct 52 mg/dL (75-193) L 09/12/17 04:10 HDL Cholesterol 14 mg/dL (23-92) L 09/12/17 04:10 Amylase 30 U/L (29-103) 09/12/17 04:10 TSH 1.05 uIU/ml (0.34-5.60) 09/12/17 04:10 Urine Source [place] 09/10/17 23:15 Urine Color ORANGE 09/10/17 23:15 Urine Clarity CLOUDY (CLEAR) H 09/10/17 23:15 Urine pH 5.5 (4.6 - 8.0) 09/10/17 23:15 Ur Specific [place] >= 1.030 (1.005-1.030) 09/10/17 23:15 Urine Protein 100 mg/dL (NEGATIVE) H 09/10/17 23:15 Urine Glucose (UA) NEGATIVE mg/dL (NEGATIVE) 09/10/17 23:15 Urine Ketones TRACE mg/dL (NEGATIVE) 09/10/17 23:15 Urine Blood LARGE (NEGATIVE) H 09/10/17 23:15 Urine Nitrate NEGATIVE (NEGATIVE) 09/10/17 23:15 Urine Bilirubin SMALL (NEGATIVE) H 09/10/17 23:15 Urine Urobilinogen 0.2 E.U./dL (0.2 - 1.0) 09/10/17 23:15 Ur Leukocyte Esterase SMALL (NEGATIVE) H 09/10/17 23:15 Urine RBC 5-10 /hpf (0-5) H 09/10/17 23:15 Urine WBC 10-25 /hpf (0-5) H 09/10/17 23:15 Ur Epithelial Cells MODERATE /lpf (FEW) 09/10/17 23:15 Urine Bacteria MODERATE /hpf (NONE SEEN) H 09/10/17 23:15 Urine Yeast MODERATE /hpf (NONE SEEN) H 09/10/17 23:15 - Physical Exam Vitals and I&O: Vital Signs Temp 98.8 F 09/12/17 20:00 Pulse 83 09/12/17 20:00 Resp 20 09/12/17 22:24 BP 139/76 09/12/17 20:00 Pulse Ox 99 09/12/17 20:00 Intake & Output 09/12/17 09/12/17 09/13/17 06:59 18:59 06:59 Intake Total 1212.500 460 Output Total 280 475 Balance 932.500 -15 Weight (lbs) 92.079 kg 93.485 kg Intake: Intake, IV Amount 1062.500 100 D5-0.45NS 1,000 ml @ 50 962.500 mls/hr IV .Q20H ZAK Rx#: [id number] Fluconazole 100mg/50mL 50 100 mg In 50 ml @ 50 mls/ hr IV Q24HR ZAK Rx#: [id number] Piperacillin Sodium/ 100 50 Tazobact 2.25 gm In Sodium Chloride 0.9% 50 ml @ 100 mls/hr IV Q8HR ZAK Rx#:[id number] Oral 150 360 Output: Urine 280 475 Other: # Bowel Movements 3 1 Stool Characteristics Liquid Liquid Brown Brown Weight Source Bedscale Bedscale Active Medications: Current Medications Acetaminophen (Tylenol) 650 mg PO Q4HR PRN PRN Reason: pain/fever Stop: 11/10/17 12:00 Last Admin: 09/12/17 18:52 Dose: 650 mg Albuterol/Ipratropium (Duoneb Neb) 3 ml HHN Q6HRT ZAK Stop: 11/10/17 06:59 Last Admin: 09/12/17 19:12 Dose: 3 ml Amlodipine Besylate (Norvasc) 10 mg PO DAILY ZAK Stop: 11/11/17 11:59 Last Admin: 09/12/17 12:30 Dose: 10 mg Aspirin (Aspirin Chewable) 81 mg PO DAILY ZAK Stop: 11/11/17 09:59 Last Admin: 09/12/17 10:01 Dose: 81 mg Carvedilol (Coreg) 25 mg PO BID ZAK Stop: 11/11/17 07:39 Last Admin: 09/12/17 16:48 Dose: 25 mg Furosemide (Lasix) 40 mg IVP DAILY ZAK Stop: 11/10/17 08:59 Last Admin: 09/12/17 09:16 Dose: 40 mg Heparin Sodium (Porcine) (Heparin) 5,000 units SUBQ Q12HR ZAK Stop: 11/10/17 08:59 Last Admin: 09/12/17 21:08 Dose: 5,000 units Piperacillin Sod/Tazobactam (Sod 2.25 gm/ Sodium Chloride) 50 mls @ 100 mls/hr IV Q8HR ZAK Stop: 11/10/17 04:59 Last Admin: 09/12/17 21:09 Dose: 100 mls/hr Dextrose/Sodium Chloride (D5-0.45ns) 1,000 mls @ 50 mls/hr IV .Q20H ZAK Stop: 11/10/17 10:17 Last Infusion: 09/12/17 06:00 Dose: 50 mls/hr Fluconazole (Diflucan) 100 mg in 50 mls @ 50 mls/hr IV Q24HR ZAK Stop: 11/10/17 14:59 Last Infusion: 09/12/17 15:20 Dose: Infused Insulin Aspart (Novolog Insulin Sliding Scale) 0 units SUBQ ACHS [facility]; Protocol Stop: 11/10/17 07:29 Last Admin: 09/12/17 21:08 Dose: 4 units Levothyroxine Sodium (Synthroid) 0.075 mg PO QDAC ZAK Stop: 11/11/17 07:29 Last Admin: 09/12/17 06:41 Dose: 0.075 mg Losartan Potassium (Cozaar) 100 mg PO DAILY ZAK Stop: 11/11/17 07:39 Last Admin: 09/12/17 07:40 Dose: 100 mg Methylprednisolone Sodium Succinate (Solu-Medrol) 40 mg IVP Q6HR ZAK Stop: 11/10/17 05:59 Last Admin: 09/12/17 17:00 Dose: 40 mg Miscellaneous (Vte Chemical Prophylaxis Screen/ Admission) 1 ea PRN PRN PRN Reason: PROTOCOL Stop: 11/10/17 07:44 Miscellaneous (Probiotic Screen) 1 ea PRN PRN PRN Reason: PROTOCOL Stop: 11/11/17 09:19 Potassium Chloride (Klor-Con) 40 meq PO DAILY ZAK Stop: 11/10/17 08:59 Last Admin: 09/12/17 09:15 Dose: 40 meq Nutritional Asmnt/Malnutr-PDOC - Dietary Evaluation Malnutrition Findings (Please click <Entered> for more info): Nutritional Asmnt/Malnutrition Start: 09/12/17 13: 58 Text: Status: Complete Freq: Protocol: Document 09/12/17 14:00 KRISTIN (Rec: 09/12/17 14:20 LCHENG [id number]) Nutritional Asmnt/Malnutrition Patient General Information Nutritional Screening High Risk Consult Diagnosis resp failure B/L RIB fx Pertinent Medical Hx/Surgical Hx HTN, DM, CAD, CHF, CVA/TIA, dyslipidemia, dementia Subjective Information Consult received for ita Thomas BS 228 at admission. Pt seen lying in bed at time of visit , appeared tired and weak. Pt stated no appetite. Per RN , pt only consumed little breakfast today. Per EMR, 10% of breakfast. Current Diet Order/ Nutrition Support CCHO, BEBE, pureed [address] [place] thick Pertinent Medications D5-0.45ns, lasix, novolog, synthroid, piperacillin, kcl Pertinent Labs 8/6 Cl 114, BUN 43, Cr 2.4, glucose 280, POC 235-240, Ca 7 .4 8/5 Cl 115, BUN 36, Cr 2.2, GLucose 230, POC 169-265, Ca 7 .9 Nutritional Hx/Data Height 1.63 m Height (Calculated Centimeters) 162.6 Current Weight (lbs) 92.079 kg Weight (Calculated Kilograms) 92.1 Weight (Calculated Grams) 14213.3 [place] Body Weight 120 Body Mass Index (BMI) 34.8 Weight Status Obese GI Symptoms GI Symptoms None Last BM 8/6 x3 Difficult in: None Skin Integrity/Comment: non pitting edema skintear reddeness Current %PO Negligible < 25% Estimated Nutritional Goals BEE in Kcals: Adj wt of IBW Calories/Kcals/Kg 25-30 Kcals Calculated 8702-2579 Protein: Adj wt of IBW Protein g/k.8-1 monitor renal diet Protein Calculated 51-64 Fluid: ml 1600-1920ml (1ml/kcal) Nutritional Problem 1. Problem Problem inadequate food intake Etiology poor appetite Signs/Symptoms: PO intake<25% Malnutrition Alert Is there a minimum of two criteria No selected? Query Text:Check all the applicable criteria. A minimum of two criteria are recommended for diagnosis of either severe or non-severe malnutrition. Malnutrition Related to Morbid Obesity Malnutrition related to morbid obesity No Intervention/Recommendation Comments 1. Continue with current diet as ordered. Encourage extra snacks between meals. RN notified. If PO intake continue <50% for 3 days, will consider adding nutrition supplements. 2. Monitor PO intake, wt, labs and skin integrity 3. F/U as high risk in 2-3 days, 09/14-09/15 Expected Outcomes/Goals Expected Outcomes/Goals 1. PO intake to meet at least 75% of nutritional needs. 2. Wt stability, skin to remain intact, labs to approach WNL.
[2017-09-13] MEDS: methylPREDNISolone SS 40 mg Vial IVP SCH ×5 (00:20→23:06)
[2017-09-13] MEDS: Albuterol/Ipratropium Neb 3 ML AERS HHN SCH ×4 (01:01→18:58)
--- NOTE | 2017-09-13 04:08 | Cardiology ---
09/11/2017 PATIENT OF: Dr. Quiroz. PROCEDURE: Echocardiogram. M-MODE ECHOCARDIOGRAM: Mitral valve, anterior leaflet of mitral valve shows normal excursion, EF velocity. Posterior leaflet of the mitral valve shows normal excursion. Left ventricular posterior wall shows increased thickness and normal excursion. Interventricular septum shows increased thickness, normal excursion, hypertrophy of the left ventricle, ejection fraction 65%. Left atrium normal. Aortic root shows normal dimension, normal excursion of aortic leaflets. CONCLUSION: Hypertrophy of the left ventricle, ejection fraction 65%. 2D ECHO ON THE SAME PATIENT: Long axis view showed normal-sized left ventricle with hypertrophy of the left ventricle. Left atrium normal. Aortic root shows normal dimension, normal excursion of aortic leaflets. Short axis view of mitral valve normal. Short axis view of aortic valve normal. Apical four-chamber view showed normal-sized left ventricle with hypertrophy of the left ventricle. Left atrium normal. Right ventricular cavity, right atrium normal. No pericardial effusion. CONCLUSION: Hypertrophy of the left ventricle, ejection fraction 65%. Doppler study shows mild mitral regurgitation, mild tricuspid regurgitation, right ventricular systolic pressure 42 mmHg. CONCLUSION: Mild mitral regurgitation, mild tricuspid regurgitation, hypertrophy of the left ventricle, ejection fraction 65%. JOB# [id number]
[2017-09-13] MEDS: D5-0.45NS 1,000 ML IV SCH (05:10)
[2017-09-13 06:38] LABS: % BASOPHILS 0.2 % (0.0-2.0); % EOSINOPHILS 0.1 % (0.0-5.0); % LYMPHOCYTES 9.6 % (20.0-50.0); % MONOCYTES 3.4 % (2.0-10.0); % NEUTROPHILS 86.7 % (40.0-80.0); HEMATOCRIT 31.6 % (41.0-60); HEMOGLOBIN 10.5 gm/dL (12-16); LYMPHOCYTE ABSOLUTE 0.5 Th/cmm (1.5-3.0); MEAN CELL VOLUME 87.3 fl (81-100); MEAN CORPUSCULAR HGB CONC 33.2 pg (28.0-36.0); MEAN PLATELET VOLUME 7.4 fl; MONOCYTE ABSOLUTE 0.2 Th/cmm (0.3-1.0); NEUTROPHILE ABSOLUTE 4.6 Th/cmm (1.8-8.0); PLATELET COUNT 337 Th/cmm (150-400); RED BLOOD COUNT 3.62 Mil/cmm (3.80-5.20); RED CELL DISTRIBUTION WIDTH 15.8 % (11.5-20.0); WHITE BLOOD COUNT 5.3 Th/cmm (4.8-10.8)
[2017-09-13 06:42] LABS: ALB/GLOB RATIO 0.7 (1.0-1.8); ALBUMIN 2.4 gm/dL (3.7-5.3); ALKALINE PHOSPHATASE 94 U/L (34-104); ANION GAP 12.4 (7.0-16.0); BILIRUBIN,TOTAL 0.5 mg/dL (0.3-1.0); BUN - UREA NITROGEN 50 mg/dL (7-25); CALCIUM SERUM 7.1 mg/dL (8.6-10.3); CARBON DIOXIDE 19.8 mEq/L (21.0-31.0); CHLORIDE 113 mEq/L (98-107); CREATININE - SERUM 2.8 mg/dL (0.6-1.2); GLUCOSE 259 mg/dL (70-105); POTASSIUM SERUM 4.2 mEq/L (3.5-5.1); SGOT 28 U/L (13-39); SGPT/ALT 14 U/L (7-52); SODIUM SERUM 141 mEq/L (136-145); TOTAL PROTEIN,SERUM 5.8 gm/dL (6.0-8.3)
[2017-09-13] MEDS: INSULIN ASPART SLIDING SCALE 100 UNITS/ML UNIT SUBQ SCH ×4 (07:52→22:06)
[2017-09-13] MEDS: Levothyroxine 0.075 Mg Tab PO SCH (07:53)
[2017-09-13] MEDS: Potassium Chloride 20 mEq ER Tab PO SCH (08:07)
[2017-09-13] MEDS: Aspirin 81mg Chewable Tab PO SCH (08:11)
[2017-09-13] MEDS: Fluconazole 100mg/50mL 100 MG/50 ML BOTTLE IV SCH (16:43)
[2017-09-13 19:28] LABS: A1C % 6.9 % (4.0-6.0)
--- NOTE | 2017-09-14 00:28 | Progress Notes ---
DATE: 09/13/2017 MEDICAL PROGRESS NOTE SUBJECTIVE: The patient seen and examined. The patient's family at bedside. The patient looks more alert, awake and more cooperative as well as giving appropriate history. According to the patient, she has a very poor p.o. intake. The patient's family tells me that her 33-year-old daughter found in room and this happened in month of June and since that period, she is getting more depressed. PHYSICAL EXAMINATION: VITAL SIGNS: On today's exam, temperature 97.8, pulse 70, respiratory rate 18, blood pressure 152/72. HEENT: No facial asymmetry. Tongue was pink and coated. NECK: Supple, no JVD. HEART: Regular. CHEST AND LUNGS: Equal in expansion with no expiratory wheezing. ABDOMEN: Soft, no guarding, no rigidity. Bowel sounds are present. No palpable mass. EXTREMITIES: No edema, no calf tenderness noted. LABORATORY DATA: Bilateral lower extremity venous Doppler: Questionable thrombus on the lower extremity. 2D echocardiogram remarkable for LVH with ejection fraction of 65%. Available Glucoscan is reviewed. CLINICAL IMPRESSION: 1. Yeast urinary tract infection. 2. Altered level of consciousness, improved. 3. Elevated BNP. 4. Questionable deep vein thrombosis of lower extremity. 5. Degenerative joint disease. 6. Diabetes. 7. Hypertension. 8. Chronic kidney disease. PLAN: 1. The patient is to continue anticoagulation therapy with heparin. 2. Antibiotic. 3. PT, OT. 4. Monitor blood sugar and blood pressure 5. General nursing care. 6. Follow lab 7. Follow consult recommendation. 8. Care plan reviewed and discussed. JOB# [id number]
[2017-09-14] MEDS: Albuterol/Ipratropium Neb 3 ML AERS HHN SCH ×4 (00:33→19:09)
[2017-09-14] MEDS: methylPREDNISolone SS 40 mg Vial IVP SCH ×3 (05:59→17:16)
[2017-09-14 06:04] LABS: % BASOPHILS 0.2 % (0.0-2.0); % EOSINOPHILS 0.2 % (0.0-5.0); % LYMPHOCYTES 10.4 % (20.0-50.0); % MONOCYTES 5.9 % (2.0-10.0); % NEUTROPHILS 83.3 % (40.0-80.0); HEMATOCRIT 33.7 % (41.0-60); HEMOGLOBIN 11.4 gm/dL (12-16); LYMPHOCYTE ABSOLUTE 0.4 Th/cmm (1.5-3.0); MEAN CELL VOLUME 87.2 fl (81-100); MEAN CORPUSCULAR HEMOGLOBIN 29.6 pg (27.0-31.0); MEAN CORPUSCULAR HGB CONC 33.9 pg (28.0-36.0); MEAN PLATELET VOLUME 7.5 fl; MONOCYTE ABSOLUTE 0.2 Th/cmm (0.3-1.0); NEUTROPHILE ABSOLUTE 3.4 Th/cmm (1.8-8.0); PLATELET COUNT 303 Th/cmm (150-400); RED BLOOD COUNT 3.86 Mil/cmm (3.80-5.20); RED CELL DISTRIBUTION WIDTH 15.9 % (11.5-20.0)
[2017-09-14 06:31] LABS: ALB/GLOB RATIO 0.8 (1.0-1.8); ALBUMIN 2.5 gm/dL (3.7-5.3); ALKALINE PHOSPHATASE 103 U/L (34-104); ANION GAP 12.9 (7.0-16.0); BILIRUBIN,TOTAL 0.5 mg/dL (0.3-1.0); BUN - UREA NITROGEN 54 mg/dL (7-25); CALCIUM SERUM 6.7 mg/dL (8.6-10.3); CARBON DIOXIDE 19.9 mEq/L (21.0-31.0); CHLORIDE 111 mEq/L (98-107); CREATININE - SERUM 2.5 mg/dL (0.6-1.2); GLUCOSE 291 mg/dL (70-105); POTASSIUM SERUM 3.8 mEq/L (3.5-5.1); SGOT 32 U/L (13-39); SGPT/ALT 18 U/L (7-52); SODIUM SERUM 140 mEq/L (136-145); TOTAL PROTEIN,SERUM 5.6 gm/dL (6.0-8.3)
[2017-09-14] MEDS: INSULIN ASPART SLIDING SCALE 100 UNITS/ML UNIT SUBQ SCH ×4 (06:42→22:38)
--- NOTE | 2017-09-14 07:26 | Infectious Disease Prog Note ---
Infectious Disease Subjective - Review of Systems Service Date: 09/14/17 Subjective: Doing well. no fever. Infectious Disease Objective - Results Result Diagrams: 09/14/17 05:00 09/14/17 05:00 Recent Labs: Laboratory Last Values WBC 4.0 Th/cmm (4.8-10.8) L 09/14/17 05:00 RBC 3.86 Mil/cmm (3.80-5.20) 09/14/17 05:00 Hgb 11.4 gm/dL (12-16) L 09/14/17 05:00 Hct 33.7 % (41.0-60) L 09/14/17 05:00 MCV 87.2 fl (81-100) 09/14/17 05:00 MCH 29.6 pg (27.0-31.0) 09/14/17 05:00 MCHC Differential 33.9 pg (28.0-36.0) 09/14/17 05:00 RDW 15.9 % (11.5-20.0) 09/14/17 05:00 Plt Count 303 Th/cmm (150-400) 09/14/17 05:00 MPV 7.5 fl 09/14/17 05:00 Neutrophils % 83.3 % (40.0-80.0) H 09/14/17 05:00 Lymphocytes % 10.4 % (20.0-50.0) L 09/14/17 05:00 Monocytes % 5.9 % (2.0-10.0) 09/14/17 05:00 Eosinophils % 0.2 % (0.0-5.0) 09/14/17 05:00 Basophils % 0.2 % (0.0-2.0) 09/14/17 05:00 PT 12.3 SECONDS (9.5-11.5) H 09/10/17 22:13 INR 1.19 (0.5-1.4) 09/10/17 22:13 PTT (Actin FS) 24.4 SECONDS (26.0-38.0) L 09/10/17 22:13 D-Dimer 3340 ng/mL (100-400) H 09/12/17 04:10 Specimen Source Arterial 09/10/17 21:52 Sample Site Right Radial 09/10/17 21:52 pH 7.28 (7.35-7.45) L 09/10/17 21:52 pCO2 50.0 mmHg (35.0-45.0) H 09/10/17 21:52 pO2 415.0 mmHg (80.0-100.0) H 09/10/17 21:52 HCO3 22.2 mEq/L (20.0-26.0) 09/10/17 21:52 Base Excess -3.6 mEq/L (-3.0-3.0) L 09/10/17 21:52 O2 Saturation 100.0 % (92.0-100.0) 09/10/17 21:52 Cl Test Positive 09/10/17 21:52 Vent Rate NA 09/10/17 21:52 Inspired O2 100 09/10/17 21:52 Tidal Volume NA 09/10/17 21:52 PEEP NA 09/10/17 21:52 Pressure (ins/psv/peep) NA 09/10/17 21:52 Critical Value SC 09/10/17 21:52 Sodium 140 mEq/L (136-145) 09/14/17 05:00 Potassium 3.8 mEq/L (3.5-5.1) 09/14/17 05:00 Chloride 111 mEq/L (98-107) H 09/14/17 05:00 Carbon Dioxide 19.9 mEq/L (21.0-31.0) L 09/14/17 05:00 Anion Gap 12.9 (7.0-16.0) 09/14/17 05:00 BUN 54 mg/dL (7-25) H 09/14/17 05:00 Creatinine 2.5 mg/dL (0.6-1.2) H 09/14/17 05:00 Est GFR ( Amer) TNP 09/14/17 05:00 Est GFR (Non-Af Amer) TNP 09/14/17 05:00 BUN/Creatinine Ratio 21.6 09/14/17 05:00 Glucose 291 mg/dL (70-105) H 09/14/17 05:00 POC Glucose 263 MG/DL (70 - 105) H 09/13/17 22:04 Hemoglobin A1c % 6.9 % (4.0-6.0) H 09/11/17 08:10 Whole Bld Lactic Acid 1.08 mmol/L (0.60-1.99) 09/10/17 22:13 Uric Acid 9.1 mg/dL (2.3-6.6) H 09/12/17 04:10 Calcium 6.7 mg/dL (8.6-10.3) L 09/14/17 05:00 Total Bilirubin 0.5 mg/dL (0.3-1.0) 09/14/17 05:00 AST 32 U/L (13-39) 09/14/17 05:00 ALT 18 U/L (7-52) 09/14/17 05:00 Alkaline Phosphatase 103 U/L (34-104) 09/14/17 05:00 Ammonia 51 umol/L (16-53) 09/12/17 04:10 Creatine Kinase 130 U/L (30-223) 09/11/17 11:45 Troponin I 0.03 ng/mL (0.01-0.05) 09/11/17 19:59 B-Natriuretic Peptide 1100.0 pg/mL (5.0-100.0) H 09/13/17 05:35 Total Protein 5.6 gm/dL (6.0-8.3) L 09/14/17 05:00 Albumin 2.5 gm/dL (3.7-5.3) L 09/14/17 05:00 Globulin 3.1 gm/dL 09/14/17 05:00 Albumin/Globulin Ratio 0.8 (1.0-1.8) L 09/14/17 05:00 Triglycerides 170 mg/dL (<150) H 09/12/17 04:10 Cholesterol 86 mg/dL (<200) 09/12/17 04:10 LDL Cholesterol Direct 52 mg/dL (75-193) L 09/12/17 04:10 HDL Cholesterol 14 mg/dL (23-92) L 09/12/17 04:10 Amylase 30 U/L (29-103) 09/12/17 04:10 TSH 1.05 uIU/ml (0.34-5.60) 09/12/17 04:10 Urine Source [place] 09/10/17 23:15 Urine Color ORANGE 09/10/17 23:15 Urine Clarity CLOUDY (CLEAR) H 09/10/17 23:15 Urine pH 5.5 (4.6 - 8.0) 09/10/17 23:15 Ur Specific [place] >= 1.030 (1.005-1.030) 09/10/17 23:15 Urine Protein 100 mg/dL (NEGATIVE) H 09/10/17 23:15 Urine Glucose (UA) NEGATIVE mg/dL (NEGATIVE) 09/10/17 23:15 Urine Ketones TRACE mg/dL (NEGATIVE) 09/10/17 23:15 Urine Blood LARGE (NEGATIVE) H 09/10/17 23:15 Urine Nitrate NEGATIVE (NEGATIVE) 09/10/17 23:15 Urine Bilirubin SMALL (NEGATIVE) H 09/10/17 23:15 Urine Urobilinogen 0.2 E.U./dL (0.2 - 1.0) 09/10/17 23:15 Ur Leukocyte Esterase SMALL (NEGATIVE) H 09/10/17 23:15 Urine RBC 5-10 /hpf (0-5) H 09/10/17 23:15 Urine WBC 10-25 /hpf (0-5) H 09/10/17 23:15 Ur Epithelial Cells MODERATE /lpf (FEW) 09/10/17 23:15 Urine Bacteria MODERATE /hpf (NONE SEEN) H 09/10/17 23:15 Urine Yeast MODERATE /hpf (NONE SEEN) H 09/10/17 23:15 - Physical Exam Vitals and I&O: Vital Signs Temp 96.5 F 09/14/17 03:00 Pulse 75 09/14/17 07:17 Resp 20 09/14/17 07:17 BP 139/85 09/14/17 03:00 Pulse Ox 100 09/14/17 07:17 Intake & Output 09/13/17 09/14/17 09/14/17 18:59 06:59 18:59 Intake Total 500 1100 Output Total 1300 Balance -800 1100 Weight (lbs) 93.667 kg Intake: Intake, IV Amount 1100 D5-0.45NS 1,000 ml @ 50 1000 mls/hr IV .Q20H [facility] Rx#: [id number] Piperacillin Sodium/ 100 Tazobact 2.25 gm In Sodium Chloride 0.9% 50 ml @ 100 mls/hr IV Q8HR [facility] Rx#:[id number] Oral 500 Output: Urine 1300 Other: Stool Characteristics Soft Soft Liquid Brown Weight Source Bedscale Active Medications: Current Medications Acetaminophen (Tylenol) 650 mg PO Q4HR PRN PRN Reason: pain/fever Stop: 11/10/17 12:00 Last Admin: 09/12/17 18:52 Dose: 650 mg Albuterol/Ipratropium (Duoneb Neb) 3 ml HHN Q6HRT [facility] Stop: 11/10/17 06:59 Last Admin: 09/14/17 07:17 Dose: 3 ml Amlodipine Besylate (Norvasc) 10 mg PO DAILY [facility] Stop: 11/11/17 11:59 Last Admin: 09/13/17 08:11 Dose: 10 mg Aspirin (Aspirin Chewable) 81 mg PO DAILY [facility] Stop: 11/11/17 09:59 Last Admin: 09/13/17 08:11 Dose: 81 mg Carvedilol (Coreg) 25 mg PO BID [facility] Stop: 11/11/17 07:39 Last Admin: 09/13/17 16:43 Dose: 25 mg Furosemide (Lasix) 40 mg IVP DAILY [facility] Stop: 11/10/17 08:59 Last Admin: 09/13/17 08:06 Dose: 40 mg Heparin Sodium (Porcine) (Heparin) 5,000 units SUBQ Q12HR [facility] Stop: 11/10/17 08:59 Last Admin: 09/13/17 20:46 Dose: 5,000 units Piperacillin Sod/Tazobactam (Sod 2.25 gm/ Sodium Chloride) 50 mls @ 100 mls/hr IV Q8HR [facility] Stop: 11/10/17 04:59 Last Admin: 09/14/17 05:59 Dose: 100 mls/hr Dextrose/Sodium Chloride (D5-0.45ns) 1,000 mls @ 50 mls/hr IV .Q20H [facility] Stop: 11/10/17 10:17 Last Infusion: 09/14/17 04:42 Dose: Infused Fluconazole (Diflucan) 100 mg in 50 mls @ 50 mls/hr IV Q24HR [facility] Stop: 11/10/17 14:59 Last Admin: 09/13/17 16:43 Dose: 50 mls/hr Insulin Aspart (Novolog Insulin Sliding Scale) 0 units SUBQ ACHS [facility]; Protocol Stop: 11/10/17 07:29 Last Admin: 09/14/17 06:42 Dose: 8 units Levothyroxine Sodium (Synthroid) 0.075 mg PO QDAC [facility] Stop: 11/11/17 07:29 Last Admin: 09/13/17 07:53 Dose: 0.075 mg Losartan Potassium (Cozaar) 100 mg PO DAILY [facility] Stop: 11/11/17 07:39 Last Admin: 09/13/17 08:07 Dose: 100 mg Methylprednisolone Sodium Succinate (Solu-Medrol) 40 mg IVP Q6HR [facility] Stop: 11/10/17 05:59 Last Admin: 09/14/17 05:59 Dose: 40 mg Mirtazapine (Remeron) 7.5 mg PO HS [facility]; Protocol Stop: 11/12/17 20:59 Last Admin: 09/13/17 20:48 Dose: 7.5 mg Miscellaneous (Vte Chemical Prophylaxis Screen/ Admission) 1 ea PRN PRN PRN Reason: PROTOCOL Stop: 11/10/17 07:44 Miscellaneous (Probiotic Screen) 1 ea PRN PRN PRN Reason: PROTOCOL Stop: 11/11/17 09:19 Potassium Chloride (Klor-Con) 40 meq PO DAILY [facility] Stop: 11/10/17 08:59 Last Admin: 09/13/17 08:07 Dose: 40 meq General: no acute distress, well developed, well nourished HEENT: atraumatic, no normocephalic, no PERRLA Neck: supple, no thyromegaly Cardiovascular: S1S2, regular Lungs: clear to auscultation bilaterally, clear to percussion Abdomen: soft, no tender, no distended, no rebound Extremities: no cyanosis, no clubbing Neurological: no awake Skin: intact Infectious Disease Assmt/Plan - Assessment Assessment: 1. Leukocytosis, sepsis. 2. UTI and candiduria. Bacteriuria. 3. Hypertension. 4. Coronary artery Disease. 5. Diabetes mellitus type 2. 6. History of CVA. - Plan Plan: cpm. Nutritional Asmnt/Malnutr-PDOC - Dietary Evaluation Malnutrition Findings (Please click <Entered> for more info): Nutritional Asmnt/Malnutrition Start: 09/12/17 13: 58 Text: Status: Complete Freq: Protocol: Document 09/12/17 14:00 KRISTIN (Rec: 09/12/17 14:20 KRISTIN [email or web address]) Nutritional Asmnt/Malnutrition Patient General Information Nutritional Screening High Risk Consult Diagnosis resp failure B/L RIB fx Pertinent Medical Hx/Surgical Hx HTN, DM, CAD, CHF, CVA/TIA, dyslipidemia, dementia Subjective Information Consult received for ita Thomas BS 228 at admission. Pt seen lying in bed at time of visit , appeared tired and weak. Pt stated no appetite. Per RN , pt only consumed little breakfast today. Per EMR, 10% of breakfast. Current Diet Order/ Nutrition Support CCHO, BEBE, pureed [place] thick Pertinent Medications D5-0.45ns, lasix, novolog, synthroid, piperacillin, kcl Pertinent Labs 09/12 Cl 114, BUN 43, Cr 2.4, glucose 280, POC 235-240, Ca 7 .4 09/11 Cl 115, BUN 36, Cr 2.2, GLucose 230, POC 169-265, Ca 7 .9 Nutritional Hx/Data Height 1.63 m Height (Calculated Centimeters) 162.6 Current Weight (lbs) 92.079 kg Weight (Calculated Kilograms) 92.1 Weight (Calculated Grams) 32656.3 [place] Body Weight 120 Body Mass Index (BMI) 34.8 Weight Status Obese GI Symptoms GI Symptoms None Last BM 09/12 x3 Difficult in: None Skin Integrity/Comment: non pitting edema skintear reddeness Current %PO Negligible < 25% Estimated Nutritional Goals BEE in Kcals: Adj wt of IBW Calories/Kcals/Kg 25-30 Kcals Calculated 6953-3455 Protein: Adj wt of IBW Protein g/k.8-1 monitor renal diet Protein Calculated 51-64 Fluid: ml 1600-1920ml (1ml/kcal) Nutritional Problem 1. Problem Problem inadequate food intake Etiology poor appetite Signs/Symptoms: PO intake<25% Malnutrition Alert Is there a minimum of two criteria No selected? Query Text:Check all the applicable criteria. A minimum of two criteria are recommended for diagnosis of either severe or non-severe malnutrition. Malnutrition Related to Morbid Obesity Malnutrition related to morbid obesity No Intervention/Recommendation Comments 1. Continue with current diet as ordered. Encourage extra snacks between meals. RN notified. If PO intake continue <50% for 3 days, will consider adding nutrition supplements. 2. Monitor PO intake, wt, labs and skin integrity 3. F/U as high risk in 2-3 days, 09/14-09/15 Expected Outcomes/Goals Expected Outcomes/Goals 1. PO intake to meet at least 75% of nutritional needs. 2. Wt stability, skin to remain intact, labs to approach WNL.
[2017-09-14] MEDS: Levothyroxine 0.075 Mg Tab PO SCH (08:08)
[2017-09-14] MEDS: Potassium Chloride 20 mEq ER Tab PO SCH (08:09)
[2017-09-14] MEDS: Aspirin 81mg Chewable Tab PO SCH (08:09)
[2017-09-14] MEDS: Fluconazole 100mg/50mL 100 MG/50 ML BOTTLE IV SCH (17:15)
--- NOTE | 2017-09-14 18:30 | Progress Notes ---
DATE: SUBJECTIVE: The patient seen and examined. The patient lying in the bed. The patient has no new event. OBJECTIVE: VITAL SIGNS: Temperature 97.8, pulse 73, respiratory rate 18, and blood pressure 124/73. HEENT: No facial asymmetry. NECK: Supple, no JVD. HEART: Regular. CHEST AND LUNGS: Equal in expansion, no expiratory wheezing. ABDOMEN: Soft. No guarding or rigidity. Bowel sounds present. No palpable mass. EXTREMITIES: No edema. AVAILABLE DIAGNOSTIC DATA: BUN and creatinine is 55 and 2.5. White count of 4 and hemoglobin 11.4. Glucoscan is reviewed. CLINICAL IMPRESSION: 1. [place] urinary tract infection. 2. Diabetes mellitus. 3. Diastolic heart failure. 4. Left ventricular hypertrophy. 5. Degenerative joint disease. 6. Cerebrovascular accident. 7. Hypertension. 8. Chronic kidney disease, stage III. PLAN: 1. Oxygen. 2. Nebulizer treatment. 3. Antibiotic. 4. PT/OT. 5. General nursing care. 6. Monitor blood sugar and blood pressure. 7. Adjust dose of insulin. 8. Follow lab. 9. Follow consult recommendation. 10. Care plan reviewed and discussed with staff. JOB# [id number]
[2017-09-15] MEDS: methylPREDNISolone SS 40 mg Vial IVP SCH ×4 (00:50→17:08)
[2017-09-15 05:51] LABS: URINE SOURCE CATH
[2017-09-15 05:56] LABS: URINE BILIRUBIN NEGATIVE (NEGATIVE); URINE BLOOD LARGE (NEGATIVE); URINE GLUCOSE (UA) NEGATIVE (NEGATIVE); URINE KETONE NEGATIVE (NEGATIVE); URINE LEUKOCYTE ESTERASE TRACE (NEGATIVE); URINE MICROSCOPIC INDICATED? YES; URINE NITRATE NEGATIVE (NEGATIVE); URINE PH 5.5 (4.6 - 8.0); URINE PROTEIN 30 mg/dL (NEGATIVE); URINE UROBILINOGEN 0.2 E.U./dL (0.2 - 1.0)
[2017-09-15 06:00] LABS: URINE CLARITY HAZY (CLEAR); URINE COLOR YELLOW
[2017-09-15 06:05] LABS: URINE BACTERIA FEW /hpf (NONE SEEN); URINE EPITHELIAL CELLS FEW /lpf (FEW); URINE YEAST MANY /hpf (NONE SEEN)
[2017-09-15] MEDS: Levothyroxine 0.075 Mg Tab PO SCH (06:46)
[2017-09-15] MEDS: Albuterol/Ipratropium Neb 3 ML AERS HHN SCH ×4 (07:05→18:24)
[2017-09-15] MEDS: Aspirin 81mg Chewable Tab PO SCH (08:21)
[2017-09-15] MEDS: Potassium Chloride 20 mEq ER Tab PO SCH (08:22)
[2017-09-15] MEDS: INSULIN ASPART SLIDING SCALE 100 UNITS/ML UNIT SUBQ SCH ×4 (08:23→22:10)
--- NOTE | 2017-09-15 09:40 | Infectious Disease Prog Note ---
Infectious Disease Subjective - Review of Systems Service Date: 09/15/17 Subjective: Doing well. no fever. Infectious Disease Objective - Results Result Diagrams: 09/14/17 05:00 09/14/17 05:00 Recent Labs: Laboratory Last Values WBC 4.0 Th/cmm (4.8-10.8) L 09/14/17 05:00 RBC 3.86 Mil/cmm (3.80-5.20) 09/14/17 05:00 Hgb 11.4 gm/dL (12-16) L 09/14/17 05:00 Hct 33.7 % (41.0-60) L 09/14/17 05:00 MCV 87.2 fl (81-100) 09/14/17 05:00 MCH 29.6 pg (27.0-31.0) 09/14/17 05:00 MCHC Differential 33.9 pg (28.0-36.0) 09/14/17 05:00 RDW 15.9 % (11.5-20.0) 09/14/17 05:00 Plt Count 303 Th/cmm (150-400) 09/14/17 05:00 MPV 7.5 fl 09/14/17 05:00 Neutrophils % 83.3 % (40.0-80.0) H 09/14/17 05:00 Lymphocytes % 10.4 % (20.0-50.0) L 09/14/17 05:00 Monocytes % 5.9 % (2.0-10.0) 09/14/17 05:00 Eosinophils % 0.2 % (0.0-5.0) 09/14/17 05:00 Basophils % 0.2 % (0.0-2.0) 09/14/17 05:00 PT 12.3 SECONDS (9.5-11.5) H 09/10/17 22:13 INR 1.19 (0.5-1.4) 09/10/17 22:13 PTT (Actin FS) 24.4 SECONDS (26.0-38.0) L 09/10/17 22:13 D-Dimer 3340 ng/mL (100-400) H 09/12/17 04:10 Specimen Source Arterial 09/10/17 21:52 Sample Site Right Radial 09/10/17 21:52 pH 7.28 (7.35-7.45) L 09/10/17 21:52 pCO2 50.0 mmHg (35.0-45.0) H 09/10/17 21:52 pO2 415.0 mmHg (80.0-100.0) H 09/10/17 21:52 HCO3 22.2 mEq/L (20.0-26.0) 09/10/17 21:52 Base Excess -3.6 mEq/L (-3.0-3.0) L 09/10/17 21:52 O2 Saturation 100.0 % (92.0-100.0) 09/10/17 21:52 Cl Test Positive 09/10/17 21:52 Vent Rate NA 09/10/17 21:52 Inspired O2 100 09/10/17 21:52 Tidal Volume NA 09/10/17 21:52 PEEP NA 09/10/17 21:52 Pressure (ins/psv/peep) NA 09/10/17 21:52 Critical Value SC 09/10/17 21:52 Sodium 140 mEq/L (136-145) 09/14/17 05:00 Potassium 3.8 mEq/L (3.5-5.1) 09/14/17 05:00 Chloride 111 mEq/L (98-107) H 09/14/17 05:00 Carbon Dioxide 19.9 mEq/L (21.0-31.0) L 09/14/17 05:00 Anion Gap 12.9 (7.0-16.0) 09/14/17 05:00 BUN 54 mg/dL (7-25) H 09/14/17 05:00 Creatinine 2.5 mg/dL (0.6-1.2) H 09/14/17 05:00 Est GFR ( Amer) TNP 09/14/17 05:00 Est GFR (Non-Af Amer) TNP 09/14/17 05:00 BUN/Creatinine Ratio 21.6 09/14/17 05:00 Glucose 291 mg/dL (70-105) H 09/14/17 05:00 POC Glucose 239 MG/DL (70 - 105) H 09/15/17 05:30 Hemoglobin A1c % 6.9 % (4.0-6.0) H 09/11/17 08:10 Whole Bld Lactic Acid 1.08 mmol/L (0.60-1.99) 09/10/17 22:13 Uric Acid 9.1 mg/dL (2.3-6.6) H 09/12/17 04:10 Calcium 6.7 mg/dL (8.6-10.3) L 09/14/17 05:00 Total Bilirubin 0.5 mg/dL (0.3-1.0) 09/14/17 05:00 AST 32 U/L (13-39) 09/14/17 05:00 ALT 18 U/L (7-52) 09/14/17 05:00 Alkaline Phosphatase 103 U/L (34-104) 09/14/17 05:00 Ammonia 51 umol/L (16-53) 09/12/17 04:10 Creatine Kinase 130 U/L (30-223) 09/11/17 11:45 Troponin I 0.03 ng/mL (0.01-0.05) 09/11/17 19:59 B-Natriuretic Peptide 853.0 pg/mL (5.0-100.0) H 09/14/17 05:00 Total Protein 5.6 gm/dL (6.0-8.3) L 09/14/17 05:00 Albumin 2.5 gm/dL (3.7-5.3) L 09/14/17 05:00 Globulin 3.1 gm/dL 09/14/17 05:00 Albumin/Globulin Ratio 0.8 (1.0-1.8) L 09/14/17 05:00 Triglycerides 170 mg/dL (<150) H 09/12/17 04:10 Cholesterol 86 mg/dL (<200) 09/12/17 04:10 LDL Cholesterol Direct 52 mg/dL (75-193) L 09/12/17 04:10 HDL Cholesterol 14 mg/dL (23-92) L 09/12/17 04:10 Amylase 30 U/L (29-103) 09/12/17 04:10 TSH 1.05 uIU/ml (0.34-5.60) 09/12/17 04:10 Urine Source CATH 09/15/17 05:00 Urine Color YELLOW 09/15/17 05:00 Urine Clarity [place] (CLEAR) 09/15/17 05:00 Urine pH 5.5 (4.6 - 8.0) 09/15/17 05:00 Ur Specific [place] 1.010 (1.005-1.030) 09/15/17 05:00 Urine Protein 30 mg/dL (NEGATIVE) H 09/15/17 05:00 Urine Glucose (UA) NEGATIVE mg/dL (NEGATIVE) 09/15/17 05:00 Urine Ketones NEGATIVE mg/dL (NEGATIVE) 09/15/17 05:00 Urine Blood LARGE (NEGATIVE) H 09/15/17 05:00 Urine Nitrate NEGATIVE (NEGATIVE) 09/15/17 05:00 Urine Bilirubin NEGATIVE (NEGATIVE) 09/15/17 05:00 Urine Urobilinogen 0.2 E.U./dL (0.2 - 1.0) 09/15/17 05:00 Ur Leukocyte Esterase TRACE (NEGATIVE) H 09/15/17 05:00 Urine RBC 10-25 /hpf (0-5) H 09/15/17 05:00 Urine WBC 6-10 /hpf (0-5) H 09/15/17 05:00 Ur Epithelial Cells FEW /lpf (FEW) 09/15/17 05:00 Urine Bacteria FEW /hpf (NONE SEEN) 09/15/17 05:00 Urine Yeast MANY /hpf (NONE SEEN) H 09/15/17 05:00 - Physical Exam Vitals and I&O: Vital Signs Temp 97.2 F 09/15/17 09:26 Pulse 65 09/15/17 09:26 Resp 19 09/15/17 09:26 BP 149/77 09/15/17 09:26 Pulse Ox 100 09/15/17 09:26 Intake & Output 09/14/17 09/15/17 09/15/17 18:59 06:59 18:59 Intake Total 100 200 Output Total 801 Balance 100 -601 Weight (lbs) 98.974 kg Intake: Intake, IV Amount 100 100 Fluconazole 100mg/50mL 50 100 mg In 50 ml @ 50 mls/ hr IV Q24HR [facility] Rx#: [id number] Piperacillin Sodium/ 50 100 Tazobact 2.25 gm In Sodium Chloride 0.9% 50 ml @ 100 mls/hr IV Q8HR [facility] Rx#:[id number] Oral 100 Output: Urine 800 Stool 1 Other: Stool Characteristics Soft Weight Source Bedscale Active Medications: Current Medications Acetaminophen (Tylenol) 650 mg PO Q4HR PRN PRN Reason: pain/fever Stop: 11/10/17 12:00 Last Admin: 09/14/17 22:39 Dose: 650 mg Albuterol/Ipratropium (Duoneb Neb) 3 ml HHN Q6HRT [facility] Stop: 11/10/17 06:59 Last Admin: 09/15/17 07:05 Dose: 3 ml Amlodipine Besylate (Norvasc) 10 mg PO DAILY [facility] Stop: 11/11/17 11:59 Last Admin: 09/15/17 08:22 Dose: 10 mg Aspirin (Aspirin Chewable) 81 mg PO DAILY [facility] Stop: 11/11/17 09:59 Last Admin: 09/15/17 08:21 Dose: 81 mg Carvedilol (Coreg) 25 mg PO BID [facility] Stop: 11/11/17 07:39 Last Admin: 09/15/17 08:22 Dose: 25 mg Furosemide (Lasix) 40 mg IVP DAILY [facility] Stop: 11/10/17 08:59 Last Admin: 09/15/17 08:21 Dose: 40 mg Heparin Sodium (Porcine) (Heparin) 5,000 units SUBQ Q12HR [facility] Stop: 11/10/17 08:59 Last Admin: 09/15/17 08:21 Dose: 5,000 units Piperacillin Sod/Tazobactam (Sod 2.25 gm/ Sodium Chloride) 50 mls @ 100 mls/hr IV Q8HR [facility] Stop: 11/10/17 04:59 Last Infusion: 09/15/17 06:47 Dose: Infused Fluconazole (Diflucan) 100 mg in 50 mls @ 50 mls/hr IV Q24HR [facility] Stop: 11/10/17 14:59 Last Infusion: 09/14/17 18:33 Dose: Infused Insulin Aspart (Novolog Insulin Sliding Scale) 0 units SUBQ ACHS [facility]; Protocol Stop: 11/10/17 07:29 Last Admin: 09/15/17 08:23 Dose: 4 units Levothyroxine Sodium (Synthroid) 0.075 mg PO QDAC [facility] Stop: 11/11/17 07:29 Last Admin: 09/15/17 06:46 Dose: 0.075 mg Losartan Potassium (Cozaar) 100 mg PO DAILY [facility] Stop: 11/11/17 07:39 Last Admin: 09/14/17 08:09 Dose: 100 mg Methylprednisolone Sodium Succinate (Solu-Medrol) 40 mg IVP Q6HR [facility] Stop: 11/10/17 05:59 Last Admin: 09/15/17 05:28 Dose: 40 mg Mirtazapine (Remeron) 7.5 mg PO HS [facility]; Protocol Stop: 11/12/17 20:59 Last Admin: 09/14/17 22:39 Dose: 7.5 mg Miscellaneous (Vte Chemical Prophylaxis Screen/ Admission) 1 ea PRN PRN PRN Reason: PROTOCOL Stop: 11/10/17 07:44 Miscellaneous (Probiotic Screen) 1 ea PRN PRN PRN Reason: PROTOCOL Stop: 11/11/17 09:19 Potassium Chloride (Klor-Con) 40 meq PO DAILY [facility] Stop: 11/10/17 08:59 Last Admin: 09/15/17 08:22 Dose: 40 meq General: no acute distress, well developed, well nourished HEENT: atraumatic, normocephalic, PERRLA, EOMI Neck: supple, no thyromegaly Cardiovascular: S1S2, regular Lungs: clear to auscultation bilaterally, clear to percussion Abdomen: soft, no tender, no distended, no rebound Extremities: no cyanosis, no clubbing, no edema Neurological: awake, alert, oriented Skin: intact Infectious Disease Assmt/Plan - Assessment Assessment: 1. Leukocytosis, sepsis. 2. UTI and candiduria. Bacteriuria. 3. Hypertension. 4. Coronary artery Disease. 5. Diabetes mellitus type 2. 6. History of CVA. - Plan Plan: cpm. Nutritional Asmnt/Malnutr-PDOC - Dietary Evaluation Malnutrition Findings (Please click <Entered> for more info): Nutritional Asmnt/Malnutrition Start: 09/12/17 13: 58 Text: Status: Complete Freq: Protocol: Document 09/12/17 14:00 KRISTIN (Rec: 09/12/17 14:20 KRISTIN [email or web address]) Nutritional Asmnt/Malnutrition Patient General Information Nutritional Screening High Risk Consult Diagnosis resp failure B/L RIB fx Pertinent Medical Hx/Surgical Hx HTN, DM, CAD, CHF, CVA/TIA, dyslipidemia, dementia Subjective Information Consult received for SANDEE royal 228 at admission. Pt seen lying in bed at time of visit , appeared tired and weak. Pt stated no appetite. Per RN , pt only consumed little breakfast today. Per EMR, 10% of breakfast. Current Diet Order/ Nutrition Support CCHO, BEBE, pureed [place] thick Pertinent Medications D5-0.45ns, lasix, novolog, synthroid, piperacillin, kcl Pertinent Labs 09/12 Cl 114, BUN 43, Cr 2.4, glucose 280, POC 235-240, Ca 7 .4 09/11 Cl 115, BUN 36, Cr 2.2, GLucose 230, POC 169-265, Ca 7 .9 Nutritional Hx/Data Height 1.63 m Height (Calculated Centimeters) 162.6 Current Weight (lbs) 92.079 kg Weight (Calculated Kilograms) 92.1 Weight (Calculated Grams) 52451.3 [place] Body Weight 120 Body Mass Index (BMI) 34.8 Weight Status Obese GI Symptoms GI Symptoms None Last BM 09/12 x3 Difficult in: None Skin Integrity/Comment: non pitting edema skintear reddeness Current %PO Negligible < 25% Estimated Nutritional Goals BEE in Kcals: Adj wt of IBW Calories/Kcals/Kg 25-30 Kcals Calculated [id number] Protein: Adj wt of IBW Protein g/k.8-1 monitor renal diet Protein Calculated 51-64 Fluid: ml 1600-1920ml (1ml/kcal) Nutritional Problem 1. Problem Problem inadequate food intake Etiology poor appetite Signs/Symptoms: PO intake<25% Malnutrition Alert Is there a minimum of two criteria No selected? Query Text:Check all the applicable criteria. A minimum of two criteria are recommended for diagnosis of either severe or non-severe malnutrition. Malnutrition Related to Morbid Obesity Malnutrition related to morbid obesity No Intervention/Recommendation Comments 1. Continue with current diet as ordered. Encourage extra snacks between meals. RN notified. If PO intake continue <50% for 3 days, will consider adding nutrition supplements. 2. Monitor PO intake, wt, labs and skin integrity 3. F/U as high risk in 2-3 days, 09/14-09/15 Expected Outcomes/Goals Expected Outcomes/Goals 1. PO intake to meet at least 75% of nutritional needs. 2. Wt stability, skin to remain intact, labs to approach WNL.
[2017-09-15] MEDS: Fluconazole 100mg/50mL 100 MG/50 ML BOTTLE IV SCH (15:53)
[2017-09-15 19:29] LABS: pH 7.37 (7.35-7.45)
[2017-09-15 19:30] LABS: ALLEN TEST Positive
[2017-09-15] MEDS ORDERED: Piperacillin Sodium/Tazobact 2.25 gm Vial IV ONE (22:03)
[2017-09-15] MEDS ORDERED: Heparin 25,000 Units In D5W 25,000 UNITS/250 ML BAG IV PRN (22:58)
[2017-09-15 23:42] LABS: INR 1.17 (0.5-1.4); PROTHROMBIN TIME (TEST) 12.1 SECONDS (9.5-11.5)
--- NOTE | 2017-09-16 00:09 | Progress Notes ---
DATE: PATIENT'S IDENTIFICATION: A 77-year-old female. SUBJECTIVE: The patient seen and examined. The patient stated that I cannot breath. The patient is currently on oxygen. The patient denies any chest pain. The patient has poor p.o. intake. The patient remained hemodynamically stable. OBJECTIVE: VITAL SIGNS: Temperature 97.4, pulse is 84, respiratory rate 18, blood pressure 134/70. HEENT: No facial asymmetry. NECK: Supple. No JVD. HEART: Regular. CHEST AND LUNG: Equal in expansion, no expiratory wheezing. ABDOMEN: Soft. No guarding, rigidity. Bowel sounds are present. No palpable mass. EXTREMITIES: No edema. CLINICAL IMPRESSION: 1. Shortness of breath, etiology needs to determine. 2. Urinary tract infection secondary to [place]. 3. Hypertension. 4. Coronary artery disease. 5. Diabetes. 6. Chronic kidney disease 3. 7. History of cerebrovascular accident. PLAN: Stat ABG. D-dimer and lower extremity venous Dopplers to rule out pulmonary embolism, in the view of the chest x-ray being normal. Continue to provide oxygen with nebulizer treatment with subcutaneous heparin. Continue antibiotic as prescribed. Monitor blood sugar and blood pressure. Hold discharge until we get these results back. Care plan reviewed and discussed with staff. JOB# [id number]
[2017-09-16] MEDS: Albuterol/Ipratropium Neb 3 ML AERS HHN SCH ×4 (00:18→18:51)
[2017-09-16] MEDS ORDERED: Heparin Sodium 1,000 Units/mL Vial IVP ONE (00:47)
[2017-09-16] MEDS: methylPREDNISolone SS 40 mg Vial IVP SCH ×4 (00:54→17:08)
[2017-09-16] MEDS ORDERED: Piperacillin Sodium/Tazobact 2.25 gm Vial IV ONE (05:12)
[2017-09-16] MEDS: Levothyroxine 0.075 Mg Tab PO SCH (06:44)
[2017-09-16 06:57] LABS: ANION GAP 14.5 (7.0-16.0); BUN - UREA NITROGEN 53 mg/dL (7-25); CALCIUM SERUM 6.4 mg/dL (8.6-10.3); CARBON DIOXIDE 19.1 mEq/L (21.0-31.0); CHLORIDE 110 mEq/L (98-107); CREATININE - SERUM 1.8 mg/dL (0.6-1.2); GLUCOSE 285 mg/dL (70-105); POTASSIUM SERUM 3.6 mEq/L (3.5-5.1); SODIUM SERUM 140 mEq/L (136-145)
[2017-09-16 08:15] LABS: HEMATOCRIT 34.1 % (41.0-60); HEMOGLOBIN 11.3 gm/dL (12-16); MEAN CELL VOLUME 87.1 fl (81-100); MEAN CORPUSCULAR HEMOGLOBIN 28.9 pg (27.0-31.0); MEAN CORPUSCULAR HGB CONC 33.2 pg (28.0-36.0); MEAN PLATELET VOLUME 7.5 fl; PLATELET COUNT 270 Th/cmm (150-400); RED BLOOD COUNT 3.91 Mil/cmm (3.80-5.20); RED CELL DISTRIBUTION WIDTH 15.6 % (11.5-20.0); WHITE BLOOD COUNT 5.1 Th/cmm (4.8-10.8)
[2017-09-16 08:16] LABS: BAND NEUTROPHILE 0 % (0-10); BASOPHIL 0 % (0-3); EOSINOPHIL 0 % (0-5); LYMPHOCYTE 9 % (20-50); MONOCYTE 4 % (2-10); NEUTROPHILS 87 % (40-80)
[2017-09-16] MEDS: INSULIN ASPART SLIDING SCALE 100 UNITS/ML UNIT SUBQ SCH ×4 (08:28→20:14)
[2017-09-16] MEDS: Aspirin 81mg Chewable Tab PO SCH (08:29)
[2017-09-16] MEDS: Potassium Chloride 20 mEq ER Tab PO SCH (08:29)
--- NOTE | 2017-09-16 08:34 | Diagnostic Imaging Report ---
Bilateral lower extremity DVT study HISTORY: Pain, rule out DVT COMPARISON: None Technique: Longitudinal and transverse sonographic images of the bilateral lower extremity veins were obtained with doppler analysis. FINDINGS: There is diffuse thrombus formation throughout the right lower extremity venous system. Edema of the right lower extremity is noted. There is patency of the left common femoral, superficial femoral, popliteal, posterior tibial, and peroneal veins. IMPRESSION: Diffuse right lower extremity deep venous thrombosis. Clinical correlation and follow-up is needed. Results were relayed to the referring team following the examination.
[2017-09-16] MEDS ORDERED: Heparin 25,000 Units In D5W 25,000 UNITS/250 ML BAG IV PRN (08:39)
--- NOTE | 2017-09-16 14:34 | Diagnostic Imaging Report ---
Nuclear medicine VQ scan HISTORY: Shortness of breath, rule out pulmonary embolus. Patient has history of DVT COMPARISON: Chest x-ray on 09/12/2017. Study was also compared to bilateral lower extremity venous Doppler ultrasound 09/15/2017. Technique/procedure: Patient was not able to tolerate the ventilation portion of the procedure. For the perfusion portion of examination 5.2 millicuries of technetium 99 labeled MAA was administered intravenously and multiple scintigraphic images of the lungs were obtained. Exam is severely limited as ventilation images were not performed. At least moderate-sized Segmental defects are noted. Severe Limited exam as patient was not able to tolerate ventilation images. At least moderate-sized segmental perfusion defects are noted. As such and also Given positive DVTs, underlying pulmonary emboli should be considered. Please Correlate with clinical findings. If clinically feasible, CT angiography PE study is recommended for further assessment.
[2017-09-16] MEDS: Fluconazole 100mg/50mL 100 MG/50 ML BOTTLE IV SCH (16:13)
--- NOTE | 2017-09-16 23:04 | Progress Notes ---
DATE: 09/16/2017 SUBJECTIVE: The patient seen and examined. The patient continues to have shortness of breath. The patient has DVT on the right leg. The patient is currently on full dose of IV heparin. The patient currently denies any chest pain or abdominal pain. OBJECTIVE: On exam, VITAL SIGNS: See nurse's note. HEENT: No facial asymmetry. NECK: Supple. No JVD. HEART: Regular. LUNGS: Clear to auscultation. ABDOMEN: Soft. EXTREMITIES: +1 edema, no calf tenderness noted. AVAILABLE LAB: MAR reviewed. CLINICAL IMPRESSION: 1. Deep venous thrombosis of right lower extremity with shortness of breath, suspect pulmonary embolism, currently on intravenous heparin fully anticoagulated. 2. [place] urinary tract infection. 3. Diabetes. 4. Hypertension. 5. Chronic kidney disease stage 3. 6. History of cerebrovascular accident. PLAN: 1. V/Q scan to be done in order to prove the patient has a pulmonary embolism. 2. Continue IV heparin. 3. Continue to provide current medication as prescribed. 4. Monitor blood sugar and blood pressure. 5. General nursing care. 6. Cardiac monitoring. 7. Care plan reviewed and discussed with staff. JOB# [id number]
[2017-09-17] MEDS ORDERED: Potassium Chloride 10 mEq ER Tab PO SCH (09:00)
--- NOTE | 2017-09-17 18:50 | Discharge Summary ---
DATE OF DISCHARGE: 09/16/2017 DATE OF ADMISSION: 09/10/2017 DATE OF DISCHARGE: 09/16/2017 PRINCIPAL DIAGNOSES: 1. Acute respiratory failure. 2. Complicated [place] urinary tract infection. 3. Congestive heart failure. 4. Diabetes mellitus. 5. Hypertension. 6. Deep vein thrombosis involving lower extremity. 7. Hyperlipidemia. 8. Chronic kidney disease stage 3. 9. Obesity. 10. Cerebrovascular accident with left-sided weakness. 11. Encephalopathy. 12. Degenerative joint disease. 13. Decline in self-care and mobility. 14. Left ventricular hypertrophy by 2D echocardiogram. BRIEF STATEMENT FOR THE REASON FOR ADMISSION: A 77-year-old female admitted from sn[facility] to [facility] for evaluation of shortness of breath, altered mental status, and urinary tract infection. Please refer to Dr. Leeroy Ibrahmi's H and P for further information. HOSPITAL COURSE: The patient was admitted to ICU. The patient was seen by Cardiology and Infectious Disease. IV antibiotic was continued. Oxygen, nebulizer treatment was also given. The patient was followed by senior compensation consultant and 2D echocardiogram revealed LVH. Workup did reveal the patient had a DVT, [place] urinary tract infection as well as multiple underlying comorbid conditions, which were treated as well. The patient also underwent a lung scan, which was unremarkable for pulmonary embolism. It was recommended that the patient should be treated with anticoagulation therapy for pulmonary embolism, which can be treated at the lower level of care. Further workup for DVT can be done as an outpatient in the view of treatment remaining the same. The patient was discharged to snf with Eliquis 10 mg b.i.d. for one week followed by 5 mg b.i.d. along with continuation of other medication, which were reconciled the time of discharge. The patient will be followed by her capacitor pack press operator in a snf. [facility]# [id number]
== END 2017-09-16 20:50 | DRG 871 ==
LOC: ER 21:51 → ICU 09-11 01:40 → ERII 09-11 01:42 → ICU 09-11 03:45 → TELE 09-12 17:45
PROVIDERS: ADMIT Internal Medicine; ATTEND Internal Medicine
DX: A41.9 Sepsis, unspecified organism (principal); G93.40 Encephalopathy, unspecified; J96.00 Acute respiratory failure, unspecified whether with hypoxia or hypercapnia; S22.32XA Fracture of one rib, left side, initial encounter for closed fracture; S22.31XA Fracture of one rib, right side, initial encounter for closed fracture; N39.0 Urinary tract infection, site not specified; I13.0 Hypertensive heart and chronic kidney disease with heart failure and stage 1 through stage 4 chronic kidney disease, or unspecified chronic kidney disease; J81.1 Chronic pulmonary edema; I82.401 Acute embolism and thrombosis of unspecified deep veins of right lower extremity; G47.33 Obstructive sleep apnea (adult) (pediatric); I25.10 Atherosclerotic heart disease of native coronary artery without angina pectoris; E11.21 Type 2 diabetes mellitus with diabetic nephropathy; E11.22 Type 2 diabetes mellitus with diabetic chronic kidney disease; Z68.35 Body mass index [BMI] 35.0-35.9, adult; K76.0 Fatty (change of) liver, not elsewhere classified; E78.5 Hyperlipidemia, unspecified; I69.90 Unspecified sequelae of unspecified cerebrovascular disease; N18.3 Chronic kidney disease, stage 3 (moderate); Z91.048 Other nonmedicinal substance allergy status; F03.90 Unspecified dementia, unspecified severity, without behavioral disturbance, psychotic disturbance, mood disturbance, and anxiety; X58.XXXA Exposure to other specified factors, initial encounter; Y93.89 Activity, other specified; Y92.89 Other specified places as the place of occurrence of the external cause; Y99.8 Other external cause status; E66.09 Other obesity due to excess calories; I50.810 Right heart failure, unspecified; K44.9 Diaphragmatic hernia without obstruction or gangrene; K57.90 Diverticulosis of intestine, part unspecified, without perforation or abscess without bleeding
CPT/HCPCS: 36415-UA; 36600-90; 70450-TC; 71045-TC; 80048-TC; 80053-TC; 80061-TC; 81001-TC; 82140-TC; 82150-TC; 82550-TC; 82803-TC; 82948-90; 83036-90; 83605; 83880-TC; 84443-TC; 84484-TC; 84550-TC; 85007-TC; 85025-TC; 85379-TC; 85610-TC; 85730-TC; 87086-90; 93005; 93970-TC-50; 94760; 96374; 96375; 97530; A9540; A9567; J0696; J1644; J1815; J1940; J2270; J2543; J2920; J2930; J7030; P9045; X3904; Z7610